=== PATIENT | female | born 1995 | race Caucasian/White ===

== ENCOUNTER → 2016-06-14 | Outpatient (REF) | payer OTHER | LOC: M LAB REF 16:54 | PROVIDERS: ATTEND Advanced Practice Midwife | DX: Z34.83 Encounter for supervision of other normal pregnancy, third trimester (principal) ==

== ENCOUNTER 2016-06-25 19:40 | Outpatient (CLI) | payer OTHER | END 2016-06-25 20:40 | disposition home or self-care (01) | LOC: M LDO 19:40 | PROVIDERS: ATTEND Advanced Practice Midwife ==

== ENCOUNTER 2016-07-07 04:28 | Inpatient (IN) | payer OTHER ==
[~2016-07-07] VITALS: Ht 154.9 cm; Wt 85.0 kg
[2016-07-07] VITALS (7 sets, daily range): BP systolic 109–133; BP diastolic 54–80
[2016-07-07] MEDS ORDERED: LR 1,000 ML IV SCH (05:02)
[2016-07-07] MEDS ORDERED: LACTATED RINGER'S 1000 ML IV STA (05:02)
[2016-07-07 05:49] LABS: BASO # 0.1 K/mm3 (0.0-0.2); BASO % 0.5 % (0.0-1.0); EOS # 0.1 K/mm3 (0.0-0.50); EOS % 0.7 % (0.0-3.0); LARGE UNSTAINED CELL # 0.2 K/mm3 (0.0-0.4); LARGE UNSTAINED CELL % 1.4 % (0.0-4.0); LYMPH # 1.9 K/mm3 (1.5-6.5); LYMPH % 12.5 % (24.0-44.0); MEAN CORPUSCULAR HEMOGLOBIN 27.9 pg (27.0-33.0); MEAN CORPUSCULAR HGB CONC 31.9 g/dl (32.0-36.5); MEAN CORPUSCULAR VOLUME 87.3 fl (80.0-96.0); MONO # 0.7 K/mm3 (0.0-0.8); MONO % 4.5 % (0.0-5.0); NEUTROPHILS # 12.3 K/mm3 (1.8-7.7); NEUTROPHILS % 80.4 % (36.0-66.0); PLATELET COUNT, AUTOMATED 315 k/mm3 (150-450); WHITE BLOOD COUNT 15.2 K/mm3 (4.0-10.0)
[2016-07-07] MEDS ORDERED: FENTANYL 2MCG/ML ROPIVACAINE 0.2% NACL 250 ML CADD As Ordered ONE (06:31)
[2016-07-07] MEDS ORDERED: EPIDURAL/PCA KEYS XX PRN (07:00)
[2016-07-07] MEDS ORDERED: diphenhydrAMINE INJ 50MG/ML VIAL (J1200) IV PRN (07:00)
[2016-07-07] MEDS ORDERED: FENTANYL/ROPIVACAINE/NACL CADD 250 ML EPIDURAL SCH (07:00)
[2016-07-07] MEDS ORDERED: REFRIGERATOR IV KEYS XX PRN (07:00)
[2016-07-07] MEDS ORDERED: ONDANSETRON 4MG/2ML VIAL (J2405) IV PRN (07:00)
[2016-07-07] MEDS ORDERED: NALOXONE INJ 0.4 MG/1 ML VIAL (J2310) IV PRN (07:00)
[2016-07-07] MEDS ORDERED: EPIDURAL COMMENT XX SCH (07:00)
[2016-07-07 07:17] LABS: CORD GAS ABE A -1.8; CORD GAS HCO3 A 25.5 MEQ/L; CORD GAS O2 SAT A 21.4 %; CORD GAS PCO2 A 54.1 mmHg; CORD GAS PH A 7.291 UNITS; CORD GAS PO2 A 13.1 mmHg; CORD GAS SBC A 21.2 MEQ/L; CORD GAS TCO2 A 27.1 MEQ/L
[2016-07-07] MEDS ORDERED: OXYTOCIN DRIP 30 UNITS in APPROPRIATE DILUENT 1 EA IV SCH (07:17)
[2016-07-07 07:20] LABS: CORD GAS ABE V -1.5; CORD GAS O2 SAT V 57.6 %; CORD GAS PCO2 V 42.9 mmHg; CORD GAS PH V 7.365 UNITS; CORD GAS PO2 V 23.3 mmHg; CORD GAS SBC V 22.3 MEQ/L; CORD GAS TCO2 V 25.3 MEQ/L
[2016-07-07] MEDS ORDERED: DIBUCAINE 1% OINTMENT 30GM TOP PRN (07:30)
[2016-07-07] MEDS ORDERED: ANUSOL HC CREAM 30GM TOP PRN (07:30)
[2016-07-07] MEDS ORDERED: DOCUSATE SODIUM 100 MG CAP PO PRN (07:30)
[2016-07-07] MEDS ORDERED: MEASLES,MUMPS,RUBELLA VACCINE INJ (MMR-II) (90707) SC SCH (07:30)
[2016-07-07] MEDS ORDERED: RHOGAM 300 MCG (1500 IU) INJ (J2790) IM SCH (07:30)
[2016-07-07] MEDS ORDERED: METHYLERGONOVINE MALEATE 0.2 MG TAB PO PRN (07:30)
[2016-07-07] MEDS: IBUPROFEN 800 MG TAB PO PRN ×2 (07:41→16:40)
[2016-07-07] MEDS: PRENATAL VITAMIN TAB PO SCH (07:43)
[2016-07-07] MEDS: ACETAMINOPHEN 500 MG TAB PO PRN ×2 (11:40→23:10)
--- NOTE | 2016-07-07 12:07 | HPE ---
DATE OF ADMISSION: 07/07/2016 Jessenia is a 21-year-old female 4, para 2-0-1-2 with an estimated date of confinement (EDC) of 07/08/2016, estimated gestational age (EGA) 39-6/7 weeks gestation who presented to labor and delivery with complaints of contractions every 3-4 minutes. Upon evaluation in labor and delivery she was found to be in labor. At this point, a decision was made for admission. She initiated care in her first trimester of her . Her care has essentially been unremarkable. LABS: Blood type is A positive. Rubella immune. Hepatitis negative. HIV negative. GC and chlamydia negative. 1-hour sugar testing was within normal limits. Her Group B Streptococcus (GBS) was negative. PAST MEDICAL HISTORY: Significant for celiac disease. PAST SURGICAL HISTORY: Patient had tonsillectomy and knee surgery. SOCIAL HISTORY: No alcohol or a drug use. The patient is a cigarette smoker. Smokes approximately five cigarettes per day. REVIEW OF SYSTEMS: Unremarkable. MEDICATIONS - vitamins ALLERGIES: Gluten. PHYSICAL EXAMINATION: Normal-appearing female in no acute distress. HEENT: Grossly within normal limits. ABDOMEN: Soft, nontender, nondistended. EXTREMITIES: No clubbing, cyanosis or edema. PLAN: Admit to labor and delivery. Routine labs sent. Pain management discussed. Patient opts for an epidural. Will continue to monitor. Anticipate delivery.
--- NOTE | 2016-07-07 13:26 | DN ---
DATE: 07/07/2016 Jessenia is a 21-year-old female, 4, para 2-0-1-2, was admitted at 39-6/7 weeks gestation in labor. She progressed quickly to fully dilated, delivered a live female in right occiput anterior position with a tight nuchal cord which was reduced on the perineum. scores 8 and 9, weight 7 pounds 3 ounces. Placenta delivered spontaneously intact. Three-vessel cord. Perineum, vagina, cervix inspected. No laceration noted. Estimated blood loss 300 mL. Both mother and baby in stable condition.
[2016-07-08] MEDS: IBUPROFEN 800 MG TAB PO PRN (02:19)
[2016-07-08 06:05] VITALS: BP 109/56
[2016-07-08] MEDS: PRENATAL VITAMIN TAB PO SCH (09:17)
[2016-07-08] MEDS ORDERED: PRENTAB9 PO (11:08)
[2016-07-08] MEDS ORDERED: ACET50TA PO (11:08)
[2016-07-08] MEDS ORDERED: IBUP-1114 PO (11:08)
[2016-07-09] MEDS ORDERED: INFLUENZA QUADRIVALENT PF VACCINE 0.5ML SYRINGE/VIAL (90686) IM ONE (09:00)
== END 2016-07-08 12:50 | disposition home or self-care (01) | DRG 560 ==
LOC: M LDO 04:28 → M LDI 05:01 → M OBS 13:22
PROVIDERS: ADMIT Obstetrics & Gynecology; ATTEND Obstetrics & Gynecology
PROC: 10E0XZZ Delivery of Products of Conception, External Approach (ICD-10-PCS; principal; 2016-07-07)
DX: O69.89X0 Labor and delivery complicated by other cord complications, not applicable or unspecified (principal); Z37.0 Single live birth; Z3A.39 39 weeks gestation of pregnancy

== ENCOUNTER 2016-09-05 22:07 | Emergency (ER) | payer OTHER, SELFPAY ==
[~2016-09-05] VITALS: Ht 154.9 cm; Wt 81.6 kg
[~2016-09-05 22:07] MED LIST: ACET50TA PO; IBUP-1114 PO; PRENTAB9 PO
[2016-09-06 00:10] VITALS: BP 105/65
== END 2016-09-06 00:20 | disposition home or self-care (01) ==
LOC: M ED 22:52
DX: R51 Headache (principal); G43.709 Chronic migraine without aura, not intractable, without status migrainosus; Z86.69 Personal history of other diseases of the nervous system and sense organs

== ENCOUNTER 2016-09-21 21:38 | Emergency (ER) | payer MEDICARE, OTHER, SELFPAY ==
[~2016-09-21] VITALS: Ht 154.9 cm; Wt 81.6 kg
[2016-09-21 22:53] LABS: ANION GAP 7 MEQ/L (8-16); BLOOD UREA NITROGEN 13 MG/DL (7-18); CALCIUM LEVEL 8.8 MG/DL (8.5-10.1); CARBON DIOXIDE LEVEL 25 MEQ/L (21-32); CHLORIDE LEVEL 107 MEQ/L (98-107); CREATININE FOR GFR 0.96 MG/DL (0.55-1.02); GLOMERULAR FILTRATION RATE > 60.0 (>60); GLUCOSE, FASTING 94 MG/DL (70-105); POTASSIUM SERUM 3.9 MEQ/L (3.5-5.1); SODIUM LEVEL 139 MEQ/L (136-145)
--- NOTE | 2016-09-22 01:20 | REPUSA ---
CLINICAL HISTORY: Headache. TECHNIQUE: MRI of the brain was performed prior to and following administration of intravenous contra st material. T1 spine echo, T2 fast spin echo and FLAIR sequences were obtained in sagittal, axial an d coronal planes. FINDINGS: The sella and parasellar regions are unremarkable in appearance. The corpus callosum and cerebellar t onsils are of normal configuration and position. There are no intra or extra-axial collections. There is no mass effect or midline shift. There is no evidence of hematoma formation. There is no hydrocep halus. The brain stem shows no mass effects, infarcts or hemorrhage. There are no cerebellopontine tumors. T he acoustic nerves are symmetrical. No cerebellar intra-axial pathology delineated. The fourth ventri brian and aqueduct are normal. No abnormalities of the optic nerves are identified. There is no evidenc e of atrophic or degenerative changes. No dural or subdural masses or collections are detected. The visualized arterial structures demonstrate normal appearing flow voids. The VII and VIII nerve bu ndles are visualized and are unremarkable in appearance. There are no suspicious signal abnormalities within the infra or supratentorial space. Post gadolinium sequences demonstrate no evidence of abnormal enhancement. Chronic mucosal inflammatory changes in the posterior right ethmoid air cells. IMPRESSION: Normal MRI of the brain. Chronic mucosal inflammatory changes in the posterior right ethmoid air cells. Thank you for your kind referral of this patient.
[2016-09-22] MEDS ORDERED: MORPHINE 4 MG/ML 1ML SYRINGE IV ONE (04:15)
[2016-09-22] MEDS ORDERED: DIAM500C PO (04:17)
[2016-09-22] MEDS ORDERED: KETOROLAC 30 MG/ML VIAL (J1885) As Ordered ONE (04:17)
[2016-09-22] MEDS ORDERED: KETOROLAC 30 MG/ML VIAL (J1885) IV ONE (04:30)
[2016-09-22 04:48] LABS: GLUCOSE CSF 58 MG/DL (40-75)
[2016-09-22 04:52] LABS: APPEARANCE, CSF CLEAR (CLEAR); COLOR, CSF COLORLESS (COLORLESS); CSF TUBE# CELL CNT TUBE 1; RBC CSF AUTO 1 /mm3 (0-0); WBC CSF AUTO 1 /mm3 (0-10)
[2016-09-22 04:53] LABS: CSF DIFF IF INDICATED? NO (NO)
[2016-09-22 04:54] LABS: CSF DILUENT LOT # 6165
[2016-09-22 05:30] VITALS: BP 125/74
[2016-09-22] MEDS ORDERED: TRAM50TA2 PO (06:00)
--- NOTE | 2016-09-24 13:19 | REP ---
MRA BRAIN WITHOUT AND WITH CONTRAST: The examination is available for review at 12:45 p.m. this date. HISTORY: Intracranial hypertension. CONTRAST: ProHance 16 mL. Unenhanced and enhanced 2D [id number] MR venography were performed. There are no filling defects in the deep venous system or dural sinuses. The right transverse and sigmoid sinuses are dominant. The left transverse and sigmoid sinuses are hypoplastic. There is stenosis of the proximal and distal left transverse sinus. IMPRESSION: There is stenosis of the proximal and distal left transverse sinus. Signed by Kranthi Urias MD 09/24/2016 01:32 P
== END 2016-09-22 05:49 | disposition home or self-care (01) ==
LOC: M ED 22:18
DX: G93.2 Benign intracranial hypertension (principal); Z79.899 Other long term (current) drug therapy; Z91.018 Allergy to other foods
CPT/HCPCS: 70546; 70553; 80048; 82945; 83525; 84157; 84681; 87015; 87070; 87205; 89050; 96374; 99283; A9576; J1885

== ENCOUNTER 2016-09-24 11:00 | Emergency (ER) | payer OTHER ==
[~2016-09-24] VITALS: Ht 162.6 cm; Wt 81.6 kg
[2016-09-24] MEDS ORDERED: METOCLOPRAMIDE INJ 10MG/2ML VIAL (J2765) IV ONE (12:00)
[2016-09-24] MEDS ORDERED: MORPHINE 4 MG/ML 1ML SYRINGE IV ONE (12:00)
[2016-09-24] MEDS ORDERED: NS 1,000 ML IV ONE (12:00)
[2016-09-24 14:01] VITALS: BP 112/64
[2016-09-24] MEDS ORDERED: TRAM50TA2 PO (14:34)
[2016-09-24] MEDS ORDERED: DIAM500C PO (14:34)
== END 2016-09-24 15:06 | disposition home or self-care (01) ==
LOC: EDBD 11:00 → M ED 11:43
DX: G97.1 Other reaction to spinal and lumbar puncture (principal); Z91.018 Allergy to other foods
CPT/HCPCS: 96374; 96375; 99282; J2765

== ENCOUNTER → 2016-09-24 | Outpatient (CLI) | payer OTHER ==
[~2016-09-24] MED LIST changes: +DIAM500C PO; +TRAM50TA2 PO
[2016-09-24 15:35] VITALS: BP 127/63
== END ==
LOC: M OPP 14:11 → M SDC 14:11
PROVIDERS: ATTEND Anesthesiology
DX: R52 Pain, unspecified (principal)

== ENCOUNTER 2018-05-31 14:58 | Emergency (ER) | payer OTHER ==
[~2018-05-31] VITALS: Ht 154.9 cm; Wt 59.1 kg
[~2018-05-31 14:58] MED LIST changes: -ACET50TA PO; +MAPA500T2 PO
[2018-05-31 15:39] LABS: BASO # 0.1 10^3/uL (0.0-0.2); BASO % 0.5 % (0.0-1.0); EOS # 0.3 10^3/uL (0.0-0.50); EOS % 2.6 % (0.0-3.0); HEMOGLOBIN 11.5 g/dl (12.0-15.5); LYMPH % 21.1 % (24.0-44.0); MEAN CORPUSCULAR HEMOGLOBIN 30.2 pg (27.0-33.0); MEAN CORPUSCULAR HGB CONC 34.8 g/dl (32.0-36.5); MEAN CORPUSCULAR VOLUME 86.6 fl (80.0-96.0); MONO # 0.6 10^3/uL (0.0-0.8); MONO % 6.5 % (0.0-5.0); NEUTROPHILS # 6.5 10^3/uL (1.8-7.7); NEUTROPHILS % 69.1 % (36.0-66.0); PLATELET COUNT, AUTOMATED 247 10^3/uL (150-450); RED BLOOD COUNT 3.81 10^6/uL (4.00-5.40); WHITE BLOOD COUNT 9.5 10^3/uL (4.0-10.0)
[2018-05-31 16:54] LABS: BLOOD UREA NITROGEN 9 MG/DL (7-18); CALCIUM LEVEL 8.3 MG/DL (8.5-10.1); CARBON DIOXIDE LEVEL 24 MEQ/L (21-32); CHLORIDE LEVEL 107 MEQ/L (98-107); CREATININE FOR GFR 0.61 MG/DL (0.55-1.30); GLOMERULAR FILTRATION RATE > 60.0 (>60); GLUCOSE, FASTING 98 MG/DL (70-100); HCG, SERUM QUANTITATIVE 67226 MIU/ML; POTASSIUM SERUM 3.7 MEQ/L (3.5-5.1); SODIUM LEVEL 138 MEQ/L (136-145)
--- NOTE | 2018-05-31 19:14 | REPVR ---
EXAM: US First Trimester, Transabdominal and US , Transvaginal EXAM DATE/TIME: 05/31/2018 6:36 PM CLINICAL HISTORY: 23 years old, female; Pain; complicated by abdominal or pelvic pain; Left lower quadrant; First trimester; Gestational age or lmp: 9w3d; ; Additional info: Pelvic pain; Hcg- 67k; ? Lmp TECHNIQUE: Real-time transabdominal obstetrical ultrasound of the maternal pelvis and a first trimester , less than 14 weeks 0 days, with image documentation. Transvaginal imaging was used for better evaluation of the fetus and adnexa. COMPARISON: No relevant prior studies available. FINDINGS: GESTATION: Gestation: Single gestational sac in the uterus. 2 small very gestational fluid collections demonstrated measuring 1.9 x 2.1 x 0.9 cm and 1.1 x 0.4 x 1.3 cm consistent either residual uterine cavity or the sequelae of narciso-gestational bleeding. Single fetus within the gestational sac with a crown-rump length measuring 2.7 cm. Heart rate: heart rate is 160 beats per minute. Placenta: Unremarkable. No subchorionic bleed. Amniotic fluid: Amniotic and chorionic fluid are normal for gestational age. BIOMETRY: Estimated gestational age: Gestational age based on crown-rump length is 9 weeks 3 days. Gestational age based on LMP is unknown. MATERNAL: Uterus: Unremarkable. Cervix: Unremarkable. Right adnexa: Unremarkable. Probable corpus luteum right ovary measures 1.6 x 1.2 x 2 cm. Left adnexa: Unremarkable. Intraperitoneal: No intraperitoneal free fluid. IMPRESSION: 2 narciso-gestational fluid collections as described above. Otherwise unremarkable examination in a 9 week 3 day gestational age based on ultrasound measurements. Electronically signed by: Otoniel Rodrigez On 05/31/2018 19:14:43 PM
[2018-05-31 19:30] VITALS: BP 110/60
[2018-05-31] MEDS ORDERED: MACR100C43 PO (19:38)
== END 2018-05-31 19:50 | disposition home or self-care (01) ==
LOC: M ED 14:58
DX: O23.41 Unspecified infection of urinary tract in pregnancy, first trimester (principal); O99.89 Other specified diseases and conditions complicating pregnancy, childbirth and the puerperium; G93.2 Benign intracranial hypertension; O99.331 Smoking (tobacco) complicating pregnancy, first trimester; Z3A.09 9 weeks gestation of pregnancy; Z91.018 Allergy to other foods

== ENCOUNTER → 2018-07-09 | Outpatient (CLI) | payer OTHER ==
[~2018-07-09] MED LIST changes: +MACR100C43 PO
[2018-07-09 18:59] LABS: BASO # 0.1 10^3/uL (0.0-0.2); BASO % 0.6 % (0.0-1.0); EOS # 0.3 10^3/uL (0.0-0.50); EOS % 2.8 % (0.0-3.0); HEMATOCRIT 32.4 % (36.0-47.0); HEMOGLOBIN 10.8 g/dl (12.0-15.5); LYMPH # 2.3 10^3/uL (1.5-6.5); LYMPH % 20.9 % (24.0-44.0); MEAN CORPUSCULAR HEMOGLOBIN 30.1 pg (27.0-33.0); MEAN CORPUSCULAR HGB CONC 33.3 g/dl (32.0-36.5); MEAN CORPUSCULAR VOLUME 90.3 fl (80.0-96.0); MONO # 0.7 10^3/uL (0.0-0.8); MONO % 6.4 % (0.0-5.0); NEUTROPHILS # 7.5 10^3/uL (1.8-7.7); NEUTROPHILS % 69.1 % (36.0-66.0); PLATELET COUNT, AUTOMATED 298 10^3/uL (150-450); RED BLOOD COUNT 3.59 10^6/uL (4.00-5.40); WHITE BLOOD COUNT 10.8 10^3/uL (4.0-10.0)
--- NOTE | 2018-07-09 20:15 | REP ---
Clinical: Dating . Comparison: 05/31/2018 . Findings: Examination demonstrates a single live intrauterine in cephalic presentation. motion is identified by technologist. Placenta is noted posterior and grade grade 1 without evidence for placenta previa or abruption. Amniotic fluid volume is normal. Cervix measures 6.0 cm in length and appears closed. No evidence for nuchal cord. Gestational age by first US 15 weeks 0 days with EMMANUEL 12/31/2018 . Gestational age by current measurements 15 weeks 3-day with EMMANUEL 12/28/2018 . FHR equals 147 beats per minute. Estimated weight 121 grams ( 57th percentile). Anatomical assessment demonstrates normal structures including cranium, choroid plexus, cavum, cerebellum/posterior fossa, facial features, lungs, diaphragm, stomach, cord insertion, kidneys/bladder, and extremities. Impression: 1. Single live intrauterine currently measuring at 15 weeks 3 days gestational age and demonstrating appropriate interval growth from first US. 2. Anatomical evaluation is limited due to early gestational age and warrants reevaluation. Electronically Signed by Aureliano Montero MD 07/09/2018 08:06 P
[2018-07-09 20:37] LABS: CHLAMYDIA DNA AMPLIFICATION NEGATIVE (NEGATIVE); GC DNA AMPLIFICATION NEGATIVE (NEGATIVE)
[2018-07-11 15:47] LABS: HIV 1&2 SCREEN CENTAUR NEGATIVE (NEGATIVE); RUBELLA IgG QUALITATIVE IMMUNE (IMMUNE)
== END ==
LOC: M SMT 13:33
PROVIDERS: ATTEND Advanced Practice Midwife
DX: Z34.82 Encounter for supervision of other normal pregnancy, second trimester (principal); Z3A.15 15 weeks gestation of pregnancy

== ENCOUNTER 2018-07-15 14:47 | Observation (INO) | payer OTHER ==
[~2018-07-15] VITALS: Ht 154.9 cm; Wt 60.0 kg
[2018-07-15] MEDS ORDERED: NS 1,000 ML IV ONE (16:00)
[2018-07-15 16:32] LABS: BASO # 0.1 10^3/uL (0.0-0.2); BASO % 0.7 % (0.0-1.0); EOS # 0.3 10^3/uL (0.0-0.50); EOS % 3.1 % (0.0-3.0); HEMATOCRIT 31.4 % (36.0-47.0); LYMPH % 21.6 % (24.0-44.0); MEAN CORPUSCULAR HEMOGLOBIN 30.5 pg (27.0-33.0); MONO # 0.6 10^3/uL (0.0-0.8); MONO % 6.7 % (0.0-5.0); NEUTROPHILS # 6.3 10^3/uL (1.8-7.7); NEUTROPHILS % 67.6 % (36.0-66.0); PLATELET COUNT, AUTOMATED 271 10^3/uL (150-450); RED BLOOD COUNT 3.61 10^6/uL (4.00-5.40); WHITE BLOOD COUNT 9.4 10^3/uL (4.0-10.0)
--- NOTE | 2018-07-15 16:35 | REP ---
OB ULTRASOUND: Real-time sonographic evaluation of the gravid uterus is performed. There is a single living intrauterine gestation. The estimated gestational age is 16 weeks 1 day, EDC 12/29/2018. Cervix is closed and measures 4.2 cm in length. heart rate 147 beats per minute. position is breech. Placenta is posterior and grade 0 with no evidence of previa or abruption. Electronically Signed by Zoltan Rodriguez MD 07/16/2018 10:36 A
[2018-07-15 17:11] LABS: ALBUMIN 3.3 GM/DL (3.2-5.2); ALT/SGPT 18 U/L (12-78); BILIRUBIN,DIRECT < 0.1 MG/DL (0.0-0.2); BILIRUBIN,TOTAL 0.3 MG/DL (0.2-1.0); BLOOD UREA NITROGEN 11 MG/DL (7-18); CALCIUM LEVEL 8.3 MG/DL (8.5-10.1); CARBON DIOXIDE LEVEL 25 MEQ/L (21-32); CHLORIDE LEVEL 103 MEQ/L (98-107); CREATININE FOR GFR 0.47 MG/DL (0.55-1.30); GLOMERULAR FILTRATION RATE > 60.0 (>60); GLUCOSE, FASTING 78 MG/DL (70-100); POTASSIUM SERUM 4.2 MEQ/L (3.5-5.1); SODIUM LEVEL 136 MEQ/L (136-145); TOTAL PROTEIN 6.5 GM/DL (6.4-8.2)
--- NOTE | 2018-07-15 18:43 | REP ---
MR Brain without contrast HISTORY: Headache COMPARISON : 09/21/1969 There are no areas of abnormal signal intensity in the brain. There is no intraparenchymal hemorrhage, infarct, mass or midline shift. The ventricular system is normal in appearance. There is no extra cerebral collection. Mucosal thickening is present in the right ethmoid sinus. IMPRESSION: There is no intracranial lesion. Electronically Signed by Kranthi Urias MD 07/15/2018 06:34 P
--- NOTE | 2018-07-15 19:02 | REP ---
MRA BRAIN WITHOUT CONTRAST: HISTORY: Headache. Unenhanced phase contrast MR venography was performed with a velocity encoding of 15 cm per second. COMPARISON: 09/22/2016 The left transverse sinus is not well seen. This is secondary to previously seen stenosis of the proximal and distal left transverse sinus. There are no definite filling defects in the left transverse sinus. There are no filling defects in the remaining dural sinuses or deep venous system. IMPRESSION: 1. The left transverse sinus is not well seen. This is secondary to previously seen stenoses of the proximal and distal left transverse sinus. There are no definite filling defects. 2. There are no filling defects in the remaining dural sinuses or deep venous system. Electronically Signed by Kranthi Urias MD 07/15/2018 07:06 P
[2018-07-15] MEDS ORDERED: ONDANSETRON 4 MG TAB (S0181) PO PRN (21:00)
[2018-07-15] MEDS ORDERED: ACETAMINOPHEN TAB 650MG DOSE (2X325MG) PO PRN (21:00)
[2018-07-15 22:40] VITALS: BP 111/59
[2018-07-16] VITALS: BP 103/51
[2018-07-16 08:18] LABS: HEMATOCRIT 26.5 % (36.0-47.0); HEMOGLOBIN 9.2 g/dl (12.0-15.5); MEAN CORPUSCULAR HEMOGLOBIN 30.4 pg (27.0-33.0); MEAN CORPUSCULAR HGB CONC 34.7 g/dl (32.0-36.5); MEAN CORPUSCULAR VOLUME 87.5 fl (80.0-96.0); PLATELET COUNT, AUTOMATED 230 10^3/uL (150-450); RED BLOOD COUNT 3.03 10^6/uL (4.00-5.40); WHITE BLOOD COUNT 7.9 10^3/uL (4.0-10.0)
[2018-07-16 08:30] VITALS: BP 93/52
--- NOTE | 2018-07-16 08:34 | HPE ---
DATE OF ADMISSION: 07/15/2018 PRIMARY CARE PROVIDER: Shae Millan from [facility]. CHIEF COMPLAINT: Headache. HISTORY OF PRESENT ILLNESS: Jessenia is a very pleasant 23-year-old G5, P3-0-1-3 at 16 weeks 2 days estimated gestational age with a past medical history significant for pseudotumor cerebri. She presented to the emergency room (ER) today complaining of a headache that started about 4 days ago. She states that she has got pain behind her left eye and down the back of the left side of her neck. She was diagnosed with pseudotumor cerebri at age 12. She does not have a shunt. She states that she only gets headaches really when she is . During her last she developed a headache though similar in nature to the to the one that she has today at about 30 weeks gestational age. She rode out the rest of her without a lumbar puncture, then after delivery she received a lumbar puncture. She states that during this lumbar puncture (LP) they poked her about six or seven time, a lot of cerebrospinal fluid (CSF) came out, she ended up having to get a blood patch, and was subsequently told that she should not have an LP done ever again. The patient says that her only complaint is a headache with pain behind her left eye and down the back of her left neck. She denies any nausea or vomiting, double vision, blurry vision, or gross loss of vision except for a left-sided peripheral field defect. 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 She does have some photophobia. And right now she states that her headache is bad enough that activities of daily living are impaired, she will just sit on a couch with her left arm over her eye, and is unable to take care of her three kids at home at this time. She is feeling baby move, she denies any vaginal bleeding or discharge. REVIEW OF SYSTEMS: CONSTITUTIONAL: Denies fevers, chills, night sweats, unexplained weight loss, or changes in appetite. HEENT: Admits to headache as described above as well as left eye pain and left posterior neck pain. Admits to a little bit of a left peripheral field defect. Denies amaurosis fugax, epistaxis, tinnitus, sore throat, runny nose, or odynophagia. CARDIOVASCULAR: Denies chest pain, orthopnea, edema, paroxysmal nocturnal dyspnea (PND) or palpitations. RESPIRATORY: Denies shortness of breath, cough, sputum production, hemoptysis or wheezing. GI: Denies nausea, vomiting, constipation, diarrhea, obstipation, hematemesis, hematochezia, melena, tenesmus or cramping. GENITOURINARY: Denies dysuria, hematuria, hesitancy, polyuria vaginal discharge or vaginal bleeding. She is gravid. MUSCULOSKELETAL: Denies leg weakness, joint swelling, stiffness or pain in her joints or extremities. INTEGUMENTARY: Denies any rashes, pruritus, lesions, wounds or stria. NEURO: Denies any changes to sight, smell, hearing or taste, no history of seizures, denies paresthesias or numbness. Admits to headache as described above. PSYCHIATRIC: Denies depression, anxiety, paranoia or anhedonia. ENDOCRINE: Denies mood swings sweats, diarrhea, tremor, palpitations, constipation, dry skin or thinning hair. Denies polydipsia, polyuria or polyphagia. HEMATOLOGIC: Denies easy bruising or bleeding. LYMPHATIC: Denies any new lumps or bumps anywhere. PAST MEDICAL HISTORY: Pseudotumor cerebri diagnosed at age 12 with a history of previous lumbar puncture. Celiac disease. HOME MEDICATIONS: None. FAMILY HISTORY: Her brother has pseudotumor cerebri which she states is worse than hers, and he does need a shunt. She also has a family history significant for lung cancer in her father's side concerning for her father, grandfather and grandmother. Her paternal grandfather also has prostate cancer. PAST SURGERIES: Right knee bone spur removal and a tonsillectomy and adenoidectomy. SOCIAL HISTORY: She lives at home with her three kids. Her mom is currently taking care of her children. She does not have pets. She denies tobacco, drugs or alcohol use. No only recent travel was to [place]. She denies any new illnesses. PHYSICAL EXAMINATION: Vitals: Temperature 99.0, pulse 75 and regular, respiratory rate 12, blood pressure 119/57, pulse ox is 100% on room air. General: Pleasant, awake, alert, very cooperative female in no acute distress. HEENT: Atraumatic, normocephalic. Mucous membranes are moist. Extraocular eye movements are intact. Pupils equal, round, reactive to light equally. Neck: Supple, no lymphadenopathy, no masses. Heart: Regular rate and rhythm. No murmurs, gallops or rubs. Lungs: Clear to auscultation bilaterally. No wheezes, rhonchi or rales. Abdomen: Normoactive bowel sounds, soft, nontender. The fundus of the uterus is palpated just above the pubic bone. Back: No CVA tenderness bilaterally, no abnormalities noted. Extremities: No clubbing, cyanosis or edema noted bilaterally. The patient has good peripheral pulses in all four extremities and capillary refill is less than 2 seconds. Neuro: Patient is awake, alert and oriented times three. Muscle strength is 5/5 bilaterally. Speech is clear and fluent. Extraocular eye movements are intact. Cranial nerves II-XII are grossly intact. The patient does have a slight peripheral field visual defect on the left. There is no nystagmus noted. Reflexes were not performed. Skin: No rashes, lesions or erythema is noted. LABORATORY DATA: CBC: WBC 9.4, hemoglobin 11.0, hematocrit 31.4, platelets 271. Differential shows 68% neutrophils, 22% lymphocytes, 7% monocytes, 3% eosinophils. Chemistry: Sodium 136, potassium 4.2, chloride 103, carbon dioxide 25, BUN 11, creatinine 0.43, fasting glucose 78, calcium 8.3, magnesium 2.0, total bili 0.3, direct bili less than 0.1, AST 12, ALT 18, alkaline phosphatase 46, total protein 6.5, albumin 3.3. Urine: Cloudy with a pH of 6.0 and specific gravity of 1.008. Positive for 3+ leukocyte esterase, 12 WBCs, 2+ bacteria and small amounts of amorphous sediment. MICROBIOLOGY: Urine culture pending. IMAGING: Obstetrical ultrasound shows a 16-week 1-day single living intrauterine gestation. The cervix is closed and measures 4.2 cm in length. heart rate is 147 beats per minute, position his breech, placenta is posterior and grade 0 with no evidence of previa or abruption. Brain MRI without contrast shows no areas of abnormal signal intensity, no intraparenchymal hemorrhage, infarct, mass, or midline shift. The ventricular system is normal in appearance. There is no extra cerebral fluid collection. Mucosal thickening is present in the right ethmoid sinus. MRA brain without contrast, MR venography. Left transverse sinus not well seen secondary to previously seen stenosis of the proximal and distal left transverse sinus. No definite filling defects are noted. No defects in the dural sinuses or deep venous system. ASSESSMENT: This is a 23-year-old G5, P3-0-1-3 at 16-weeks 2-days estimated gestational age with a past medical history significant for pseudotumor cerebri diagnosed at age 12 who presented to the emergency department with a headache that had lasted 4 days. This is similar to her presentations of pseudotumor cerebri in the past. PLAN: 1. Headache. Most likely secondary to pseudotumor cerebri, exacerbated by gravid status. Due to her history of a complicated lumbar puncture a couple of years ago, we will have interventional radiology do a lumbar puncture on her tomorrow morning. Dr. Escalante has been consulted and recommends that after her lumbar puncture she start Diamox 250 mg twice a day. DISPOSITION: The patient will be admitted to observation to Dr. Whalen's service starting at 0700 hours on 07/16/2018. My faculty preceptor for this patient encounter was physically present during the encounter and was fully available. All aspects of the patient interview, examination, medical decision making process, and medical care plan development were reviewed and approved by the faculty preceptor. The faculty preceptor is aware and concurs with the plan as stated in the body of this note and will attest to such by his/her cosignature. YARON
[2018-07-16 08:37] LABS: BLOOD UREA NITROGEN 10 MG/DL (7-18); CALCIUM LEVEL 7.7 MG/DL (8.5-10.1); CARBON DIOXIDE LEVEL 23 MEQ/L (21-32); CHLORIDE LEVEL 107 MEQ/L (98-107); CREATININE FOR GFR 0.55 MG/DL (0.55-1.30); GLOMERULAR FILTRATION RATE > 60.0 (>60); GLUCOSE, FASTING 79 MG/DL (70-100); POTASSIUM SERUM 3.5 MEQ/L (3.5-5.1); SODIUM LEVEL 138 MEQ/L (136-145)
[2018-07-16] MEDS ORDERED: AcetaZOLAMIDE 250 MG TAB PO SCH (09:00)
[2018-07-16] MEDS ORDERED: ACET250T2 PO (11:13)
[2018-07-16] MEDS ORDERED: ACET500T15 PO (11:13)
[2018-07-16] MEDS ORDERED: AcetaZOLAMIDE 250 MG TAB PO ONE (11:15)
--- NOTE | 2018-07-16 21:23 | IPNPDOC ---
Text Note Date of Service The patient was seen on 07/16/18. NOTE SUBJECTIVE: Does not have any new complaints. continues to have headache but it is bearable. No worsening of vision. LP could not be done at out hospital as the IR does not do it on pateints PHYSICAL EXAMINATION: Vitals: As below General: Pleasant, awake, alert, very cooperative female in no acute distress. HEENT: Atraumatic, normocephalic. Mucous membranes are moist. Extraocular eye movements are intact. Pupils equal, round, reactive to light equally. Neck: Supple, no lymphadenopathy, no masses. Heart: Regular rate and rhythm. No murmurs, gallops or rubs. Lungs: Clear to auscultation bilaterally. No wheezes, rhonchi or rales. Abdomen: Normoactive bowel sounds, soft, nontender. Back: No CVA tenderness bilaterally, no abnormalities noted. Extremities: No clubbing, cyanosis or edema noted bilaterally. The patient has good peripheral pulses in all four extremities and capillary refill is less than 2 seconds. Neuro: Patient is awake, alert and oriented times three. Muscle strength is 5/5 bilaterally. Speech is clear and fluent. Extraocular eye movements are intact. Cranial nerves II-XII are grossly intact. The patient does have a slight peripheral field visual defect on the left. There is no nystagmus noted. Skin: No rashes, lesions or erythema is noted. LAbs and radiology : Noted. ASSESSMENT AND PLAN: Jessenia is a very pleasant 23-year-old G5, P3-0-1-3 at 16 weeks 2 days estimated gestational age with a past medical history significant for pseudotumor cerebri from the age of 12 years, celiac disease presented to the emergency room (ER) today complaining of a headache that started about 4 days ago. She was diagnosed with pseudotumor cerebri at age 12. She does not have a shunt. She states that she only gets headaches really when she is . During her last she developed a headache though similar in nature to the to the one that she has today at about 30 weeks gestational age. She rode out the rest of her without a lumbar puncture, then after delivery she received a lumbar puncture. S he states that during this lumbar puncture (LP) they poked her about six or seven time, a lot of cerebrospinal fluid (CSF) came out, she ended up having to get a blood patch, and was subsequently told that she should not have an LP done ever again. MRI and MRV did not reveal any new obstruction or thrombosis. Admitted for possible Lumber puncture uder IR guidance HEadache due to Pseudotunor Cerebri worsened due to started on Diamox referred to Dr Taylor and neurology for follow up Lumber puncture was not done as MRi and MRV did not reveal any new features of increased pressure and our IR here is not equiped to handle any complications as had happened before If needed at a later date pateitn should be referred to Neurosurgery at [facility]. continue tylenol prn Disposition: patient will be discharged home. VS,Medhatbone, I+O VS, Fishbone, I+O Laboratory Tests 07/16/18 07:24 Red Blood Count 3.03 L, Mean Corpuscular Volume 87.5, Mean Corpuscular Hemoglobin 30.4, Mean Corpuscular Hemoglobin Concent 34.7, Red Cell Distribution Width 13.6, Calcium Level 7.7 L Vital Signs Date Time Temp Pulse Resp B/P (MAP) Pulse Ox O2 Delivery O2 Flow Rate FiO2 07/16/18 08:30 98.7 65 18 93/52 (66) 98 07/15/18 22:01 Room Air I&O- Last 24 Hours up to 6 AM 07/16/18 06:00 Intake Total 420 ml Output Total 300 ml Balance 120 ml JOHNATHON CHAMBERS MD Jul 16, 2018 21:23
== END 2018-07-16 13:30 | disposition home or self-care (01) ==
LOC: M ED 14:47 → M ED INP 20:51 → M PED 22:42
PROVIDERS: ADMIT Internal Medicine; ATTEND Internal Medicine Nephrology
DX: O99.352 Diseases of the nervous system complicating pregnancy, second trimester (principal); G93.2 Benign intracranial hypertension; R51 Headache

== ENCOUNTER → 2018-08-06 | Outpatient (CLI) | payer OTHER ==
[~2018-08-06] MED LIST changes: +ACET250T2 PO; +ACET500T15 PO
--- NOTE | 2018-08-07 03:16 | REP ---
Clinical: Anatomical evaluation. Comparison: 07/15/2018 . Findings: Examination demonstrates a single live intrauterine in cephalic presentation. motion is identified by technologist. Placenta is noted posterior and grade grade 1 without evidence for placenta previa or abruption. Amniotic fluid volume is normal. Cervix measures 5.3 cm in length and appears closed. No evidence for nuchal cord. Gestational age by LMP 19 weeks 2 days with EMMANUEL 12/29/2018 . Gestational age by current measurements 19 weeks 2 days with EMMANUEL 12/29/2018 . FHR equals 147 beats per minute. BPD 4.5 cm 19 weeks 5-day HC 16.3 cm 19 weeks 1 day AC 14.1 cm 19 weeks 3 days FL 3.1 cm 19 weeks 3 days HL 2.9 cm 19 weeks 3 days HC/AC ratio 1.16 Estimated weight 293 grams ( 51st percentile). Anatomical assessment demonstrates normal structures including cranium, choroid plexus, cavum, cerebellum/posterior fossa, facial features, lungs, four-chamber heart/ventricular outflow tracts, diaphragm, stomach, cord insertion/three-vessel cord, kidneys/bladder, spine, and extremities. Impression: 1. Single live intrauterine in cephalic presentation demonstrating appropriate interval growth. 2. Anatomical assessment is complete and normal. No gross abnormalities are identified. Electronically Signed by Aureliano Montero MD 08/07/2018 03:08 A
== END ==
LOC: M SMT 10:09
PROVIDERS: ATTEND Advanced Practice Midwife
DX: Z34.82 Encounter for supervision of other normal pregnancy, second trimester (principal)

== ENCOUNTER → 2018-08-19 | Outpatient (REF) | payer OTHER | LOC: M LAB REF 11:42 | PROVIDERS: ATTEND Advanced Practice Midwife | DX: Z34.82 Encounter for supervision of other normal pregnancy, second trimester (principal) ==

== ENCOUNTER 2018-12-13 19:07 | Outpatient (CLI) | payer OTHER | END 2018-12-13 19:25 | disposition home or self-care (01) | LOC: M LDO 19:07 | PROVIDERS: ATTEND Obstetrics & Gynecology | DX: O26.893 Other specified pregnancy related conditions, third trimester (principal); R06.9 Unspecified abnormalities of breathing; Z3A.38 38 weeks gestation of pregnancy ==

== ENCOUNTER 2018-12-13 19:36 | Emergency (ER) | payer OTHER ==
[~2018-12-13] VITALS: Ht 154.9 cm; Wt 77.3 kg
[2018-12-13] MEDS ORDERED: IPRATROPIUM 0.5MG/ALBUTEROL 2.5MG INH SOL UD 3ML (DUONEB)(J7620) NEB ONE (20:15)
[2018-12-13] MEDS ORDERED: NS 500 ML IV ONE (20:15)
[2018-12-13 20:26] LABS: BASO % 0.4 % (0.0-1.0); EOS # 0.2 10^3/uL (0.0-0.50); EOS % 1.9 % (0.0-3.0); HEMATOCRIT 30.9 % (36.0-47.0); HEMOGLOBIN 10.4 g/dl (12.0-15.5); LYMPH # 2.1 10^3/uL (1.5-6.5); LYMPH % 19.8 % (24.0-44.0); MEAN CORPUSCULAR HEMOGLOBIN 31.1 pg (27.0-33.0); MEAN CORPUSCULAR HGB CONC 33.7 g/dl (32.0-36.5); MEAN CORPUSCULAR VOLUME 92.5 fl (80.0-96.0); MONO % 9.8 % (0.0-5.0); NEUTROPHILS # 7.1 10^3/uL (1.8-7.7); NEUTROPHILS % 67.6 % (36.0-66.0); PLATELET COUNT, AUTOMATED 250 10^3/uL (150-450); RED BLOOD COUNT 3.34 10^6/uL (4.00-5.40); WHITE BLOOD COUNT 10.4 10^3/uL (4.0-10.0)
[2018-12-13 20:50] LABS: ALBUMIN 2.6 GM/DL (3.2-5.2); ALT/SGPT 15 U/L (12-78); BILIRUBIN,DIRECT < 0.1 MG/DL (0.0-0.2); BILIRUBIN,TOTAL 0.2 MG/DL (0.2-1.0); BLOOD UREA NITROGEN 8 MG/DL (7-18); CALCIUM LEVEL 8.4 MG/DL (8.5-10.1); CARBON DIOXIDE LEVEL 24 MEQ/L (21-32); CHLORIDE LEVEL 109 MEQ/L (98-107); CREATININE FOR GFR 0.68 MG/DL (0.55-1.30); GLOMERULAR FILTRATION RATE > 60.0 (>60); GLUCOSE, FASTING 92 MG/DL (70-100); NT-PRO BNP 55 PG/ML (<125); POTASSIUM SERUM 3.9 MEQ/L (3.5-5.1); SODIUM LEVEL 139 MEQ/L (136-145); TOTAL PROTEIN 6.6 GM/DL (6.4-8.2)
[2018-12-13 22:30] VITALS: BP 114/67
[2018-12-13] MEDS ORDERED: ALBUTEROL 90 MCG/ACT 8GM HFA INHALER INH ONE (22:30)
--- NOTE | 2018-12-15 16:54 | ECGEPIP ---
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
== END 2018-12-13 22:48 | disposition admitted as inpatient to this hospital (09) ==
LOC: M ED 19:36
DX: O99.89 Other specified diseases and conditions complicating pregnancy, childbirth and the puerperium (principal); R06.89 Other abnormalities of breathing; Z3A.39 39 weeks gestation of pregnancy; Z91.018 Allergy to other foods

== ENCOUNTER 2018-12-30 14:10 | Inpatient (IN) | payer OTHER ==
[~2018-12-30] VITALS: Ht 154.9 cm; Wt 82.2 kg
[2018-12-30 14:31] VITALS: BP 99/60
[2018-12-30] MEDS ORDERED: VENTAER INH (14:41)
[2018-12-30 16:57] VITALS: BP 109/59
[2018-12-30 17:22] VITALS: BP 112/73
[2018-12-30] MEDS ORDERED: LR 1,000 ML IV SCH ×2 (17:35→20:20)
[2018-12-30] MEDS ORDERED: LACTATED RINGER'S 1000 ML IV STA (17:35)
[2018-12-30 17:44] LABS: HEMOGLOBIN 10.2 g/dl (12.0-15.5); MEAN CORPUSCULAR HEMOGLOBIN 30.6 pg (27.0-33.0); MEAN CORPUSCULAR HGB CONC 32.9 g/dl (32.0-36.5); MEAN CORPUSCULAR VOLUME 93.1 fl (80.0-96.0); PLATELET COUNT, AUTOMATED 268 10^3/uL (150-450); RED BLOOD COUNT 3.33 10^6/uL (4.00-5.40); WHITE BLOOD COUNT 11.6 10^3/uL (4.0-10.0)
[2018-12-30] MEDS ORDERED: BICITRA 30ML SOLN UDC PO ONE (17:45)
[2018-12-30] MEDS ORDERED: MORPHINE PRES-FREE INJ 10 MG/10 ML VIAL (J2274) As Ordered ONE (18:48)
[2018-12-30] MEDS ORDERED: diphenhydrAMINE INJ 50MG/ML VIAL (J1200) IV PRN (18:56)
[2018-12-30] MEDS ORDERED: METOCLOPRAMIDE INJ 10MG/2ML VIAL (J2765) IV PRN (18:56)
[2018-12-30] MEDS ORDERED: NALOXONE INJ 0.4 MG/1 ML VIAL (J2310) IV PRN ×2 (18:56)
[2018-12-30] MEDS ORDERED: NALBUPHINE HCL 10 MG/ML AMP (J2300) IV PRN (18:56)
[2018-12-30] MEDS ORDERED: ONDANSETRON 4MG/2ML VIAL (J2405) IV PRN ×3 (18:56→20:45)
[2018-12-30] MEDS ORDERED: MIDAZOLAM INJ 2 MG/2 ML VIAL (J2250) As Ordered ONE ×2 (19:24→19:26)
[2018-12-30] MEDS ORDERED: fentaNYL 100 MCG/2 ML INJECTION (J3010) As Ordered ONE (19:29)
[2018-12-30] MEDS ORDERED: KETAMINE HCL 200 MG/20 ML VIAL As Ordered ONE (19:30)
[2018-12-30] MEDS ORDERED: OXYTOCIN DRIP 30 UNITS in APPROPRIATE DILUENT 1 EA IV SCH (20:20)
[2018-12-30] MEDS ORDERED: RHOGAM 300 MCG (1500 IU) INJ (J2790) IM SCH (20:30)
[2018-12-30] MEDS ORDERED: MEASLES,MUMPS,RUBELLA VACCINE INJ (MMR-II) (90707) SC SCH (20:30)
[2018-12-30] MEDS ORDERED: MOM 30ML SUSPENSION UDC PO PRN (20:30)
[2018-12-30] MEDS ORDERED: OXYTOCIN 30 UNITS IN 0.9% NaCl 500ML IV BAG (J2590) As Ordered ONE (20:33)
[2018-12-30] MEDS ORDERED: KETOROLAC 30 MG/ML VIAL (J1885) As Ordered ONE (20:33)
[2018-12-30] MEDS: KETOROLAC 30 MG/ML VIAL (J1885) IV SCH (20:38)
[2018-12-30] MEDS ORDERED: fentaNYL 100 MCG/2 ML INJECTION (J3010) IV PRN (20:45)
[2018-12-30] MEDS ORDERED: oxyCODONE 5MG TAB PO PRN (20:45)
[2018-12-30] MEDS: DOCUSATE SODIUM 100 MG CAP PO SCH (21:00)
[2018-12-30 21:55] VITALS: BP 104/52
[2018-12-30 22:25] VITALS: BP 103/51
[2018-12-30 23:25] VITALS: BP 112/64
[2018-12-31] VITALS (8 sets, daily range): BP systolic 99–116; BP diastolic 52–66
[2018-12-31] MEDS: PERCOCET 5MG/325MG TAB PO PRN ×3 (00:33→19:24)
[2018-12-31] MEDS: KETOROLAC 30 MG/ML VIAL (J1885) IV SCH ×3 (02:36→14:57)
--- NOTE | 2018-12-31 06:13 | HPE ---
DATE OF ADMISSION: 12/30/2018 REASON FOR ADMISSION: Labor. HISTORY OF PRESENT ILLNESS: Ms. To is a 23-year-old, 5, para 3 who presents at 40 weeks 1 day estimated gestational age by last menstrual period and confirmed by a first trimester ultrasound with complaints of contractions. She reports contractions throughout the day that have increased in intensity and frequency. She reports active movement. Denies any vaginal bleeding or leakage of fluid. Her course has been unremarkable. She initiated care in her first trimester, but has had inappropriate followup. Her last appointment was 10/13/2018 at 29 weeks. PAST MEDICAL HISTORY: None. PAST SURGICAL HISTORY: 1. Right knee surgery. 2. Appendectomy. 3. Tonsillectomy. OBSTETRICAL HISTORY: She is 5, para 3. She has had three term vaginal deliveries, all uncomplicated. She is proven to 8 pounds 12 ounces. MEDICATIONS: Includes BuSpar and vitamins. ALLERGIES: She has a gluten sensitivity. SOCIAL HISTORY: Smoked during the , but denies any alcohol use. PHYSICAL EXAMINATION: Vital signs stable. She is afebrile. She has a category one rate tracing with contractions on the tocometer. General Appearance: Well appearing, in no acute distress. Her abdomen is gravid, Akash's appears breech. Transabdominal ultrasound confirmed breech presentation. Cervical Exam: She was 2 cm dilated, 50% effaced -2 station. LABS: Blood type is A+, antibody screen is negative. Rubella is immune. RPR is nonreactive. Hepatitis surface antigen negative. HIV is negative. Hepatitis C is nonreactive. Chlamydia and gonorrhea screens negative. Did not complete a 28-week Glucola. She is GBS negative. ASSESSMENT: Ms. To is 23-year-old, 5, para 3, who appears to be in active labor with breech presentation. 2. Reassuring status. PLAN: The patient thoroughly counseled in regards to management of breech presentation. I discussed external cephalic version currently while she is in labor and primary section. Reviewed risks. After consultation and discussion with her family, the patient desires to proceed with a primary section. The operating room (OR) has been notified and anesthesia as well and will proceed. YARON
--- NOTE | 2018-12-31 06:39 | RO ---
DATE OF PROCEDURE: 12/30/2018 PREOPERATIVE DIAGNOSES: 1. Breech presentation. 2. Active labor. POSTOPERATIVE DIAGNOSES: 1. Breech presentation. 2. Active labor. PROCEDURE PERFORMED: Primary lower transverse section. SURGEON: Dr. Leda Agustin NETWORK PROJECT MANAGER: None. ANESTHESIA: Spinal. ESTIMATED BLOOD LOSS: 800 mL. INTRAVENOUS FLUIDS: 1500 mL of lactated Ringer's solution. URINE OUTPUT: 450 mL. OPERATIVE FINDINGS: Live born male , Apgars 8 and 9, weight was 7 pounds 5 ounces or 3310 grams. PREOPERATIVE ANTIBIOTICS: 2 grams of Ancef and 500 mg of azithromycin. DESCRIPTION OF OPERATION: After informed consent was obtained and written consent was reviewed, the patient was brought to the operating room where spinal anesthesia was placed. She was then placed in supine position with a left lateral tilt. Butts catheter was placed and set to gravity. She was then prepped and draped in normal sterile fashion. A time out in the operating room was then performed identifying the patient, the procedure be performed, as well as drug allergies. Anesthesia was tested and deemed to be adequate. A Pfannenstiel skin incision was then made and this was carried down to the underlying rectus fascia. The fascia was scored and this incision was extended bilaterally. The fascia was then dissected off the underlying rectus muscles both superiorly and inferiorly. The rectus muscles were midline. The peritoneum was then entered. Mobius retractor was then placed. Vesicouterine peritoneum was then tented and excised to create a bladder flap. A curvilinear incision was then made along the lower uterine segment. Amniotomy was then performed productive clear fluid. This incision was then extended and the breech was brought to the level of the incision and was delivered. The lower extremities delivered. The was then delivered down to level of the scapula where the upper extremities were delivered along with the head. Cord was clamped times two and was cut. was taken over to the warmer with a good cry. Placenta was then drained and delivered grossly intact. Uterine incision was then closed two layers using #0 Vicryl, first in a running locking fashion, followed by a second layer for imbrication in a running nonlocking fashion. Several cbwblb-[id number] stitches were placed to the left side of the uterine incision for hemostasis. Once hemostasis was achieved after several hurqny-fe-hmsvr sutures, the abdomen was then suctioned. Surgical sites were reinspected and noted be hemostatic. The Mobius retractor was then removed. The anterior peritoneum was reapproximated with #3-0 Vicryl. The rectus muscles were reapproximated #3-0 Vicryl and the fascia was then closed with #0 Vicryl in a running nonlocking fashion. Subcutaneous tissue was then irrigated and suctioned. Subcutaneous tissue was reapproximated with #3-0 Vicryl. Several subdermal stitches placed with #3-0 Vicryl and the skin was closed with #4-0 Monocryl in a subcuticular fashion. The incision was then cleaned and dried and was dressed. The patient was then taken to recovery in stable condition. Counts were correct.
[2018-12-31 07:20] LABS: HEMATOCRIT 21.4 % (36.0-47.0); MEAN CORPUSCULAR HEMOGLOBIN 29.9 pg (27.0-33.0); MEAN CORPUSCULAR HGB CONC 32.7 g/dl (32.0-36.5); MEAN CORPUSCULAR VOLUME 91.5 fl (80.0-96.0); PLATELET COUNT, AUTOMATED 211 10^3/uL (150-450); RED BLOOD COUNT 2.34 10^6/uL (4.00-5.40)
[2018-12-31] MEDS ORDERED: OXYC1TAB23 PO (07:51)
[2018-12-31] MEDS ORDERED: IBUP1TAB7 PO (07:54)
[2018-12-31] MEDS: DOCUSATE SODIUM 100 MG CAP PO SCH ×2 (08:55→21:58)
[2018-12-31] MEDS: PRENATAL VITAMINS CHEWABLE TABLET PO SCH (08:55)
[2018-12-31] MEDS: IBUPROFEN 800 MG TAB PO SCH (21:58)
[2019-01-01 02:00] VITALS: BP 99/48
[2019-01-01] MEDS: PERCOCET 5MG/325MG TAB PO PRN ×2 (03:16→13:46)
[2019-01-01 06:00] VITALS: BP 99/50
[2019-01-01] MEDS: PRENATAL VITAMINS CHEWABLE TABLET PO SCH (07:39)
[2019-01-01] MEDS: IBUPROFEN 800 MG TAB PO SCH (07:40)
[2019-01-01] MEDS: DOCUSATE SODIUM 100 MG CAP PO SCH (07:40)
--- NOTE | 2019-01-01 08:03 | DSES ---
DATE OF ADMISSION: 12/30/2018 DATE OF DISCHARGE: DISCHARGE DIAGNOSIS: Primary section, postoperative day #2, stable condition, surgeon Dr. Leda Agustin, assistant infant teacher none. HISTORY: Jessenia is a 5, para 4-0-1-4 now, who was admitted to labor and delivery in active labor and noted to have a breech presentation. Her care was sporadic and noncompliant with care. Her surgery was uncomplicated. She did deliver a male , 7 pounds 5 ounces, Apgars 8 and 9, in breech position, with estimated blood loss 800 mL. Her postoperative course has been uncomplicated. Jessenia has been out of bed for self care, narciso care and care. She does deny headache, dizziness and heart palpitations. She is breast-feeding well and her pain has been well managed with by mouth pain medications. She is tolerating a regular diet and by mouth fluids, voiding without difficulty and has positive flatus. OBJECTIVE: Temperature 98.8, pulse 86, respirations 17, blood pressure (BP) is 99/50. Preop CBC on 12/30/2018 with hemoglobin 10.2, hematocrit 31 and platelets 268. Postoperative CBC on 12/31/2018 with hemoglobin 7.0, hematocrit 21.4 and platelets 211. Her breasts are soft and nontender. Nipples are intact. No cracks and no bleeding. Abdomen: Fundus firm one fingerbreadth below umbilicus with the dressing dry and intact. There is no drainage or bleeding noted. Perineum is intact. Lochia rubra scant. Bilateral lower extremities negative for edema. PLAN: Discharge the patient home today. She is to follow up at [facility] for a 2-week incision check and an 8-week visit. Prescriptions have been E-prescribed by Dr. Leda Agustin for pain management. I did review discharge destruction that include breast care, incision care, narciso care, pelvic rest, activity and lifting restrictions, danger signs, and access to care with the patient. All her questions were answered and she requests discharge to home today.
[2019-01-01] MEDS ORDERED: ADACEL/BOOSTRIX VACCINE (DIPHTH/PERTUSS/ACELL/TETANUS)0.5ML SYR (90715) IM ONE (09:00)
== END 2019-01-01 13:54 | disposition home or self-care (01) | DRG 540 ==
LOC: M LDO 14:10 → M LDI 16:57 → M OBS 21:53
PROVIDERS: ADMIT Obstetrics & Gynecology; ATTEND Obstetrics & Gynecology
PROC: 10D00Z1 Extraction of Products of Conception, Low, Open Approach (ICD-10-PCS; principal; 2018-12-30 19:10)
DX: O32.1XX0 Maternal care for breech presentation, not applicable or unspecified (principal); Z3A.40 40 weeks gestation of pregnancy; Z37.0 Single live birth; O99.334 Smoking (tobacco) complicating childbirth; F17.210 Nicotine dependence, cigarettes, uncomplicated

== ENCOUNTER 2019-02-24 05:25 | Emergency (ER) | payer OTHER ==
[~2019-02-24] VITALS: Ht 154.9 cm; Wt 77.3 kg
[~2019-02-24 05:25] MED LIST changes: +IBUP1TAB7 PO; +OXYC1TAB23 PO; +VENTAER INH
[2019-02-24 06:42] LABS: BASO # 0.1 10^3/uL (0.0-0.2); BASO % 0.6 % (0.0-1.0); EOS # 0.5 10^3/uL (0.0-0.5); HEMATOCRIT 32.6 % (36.0-47.0); HEMOGLOBIN 10.2 g/dl (12.0-15.5); LYMPH # 2.2 10^3/uL (1.5-5.0); LYMPH % 27.7 % (24.0-44.0); MEAN CORPUSCULAR HEMOGLOBIN 25.6 pg (27.0-33.0); MEAN CORPUSCULAR HGB CONC 31.3 g/dl (32.0-36.5); MEAN CORPUSCULAR VOLUME 81.7 fl (80.0-96.0); MONO # 0.6 10^3/uL (0.0-0.8); MONO % 8.2 % (0.0-5.0); NEUTROPHILS # 4.5 10^3/uL (1.5-8.5); NEUTROPHILS % 57.1 % (36.0-66.0); PLATELET COUNT, AUTOMATED 363 10^3/uL (150-450); RED BLOOD COUNT 3.99 10^6/uL (4.00-5.40); WHITE BLOOD COUNT 7.8 10^3/uL (4.0-10.0)
[2019-02-24 06:54] LABS: PARTIAL THROMBOPLASTIN TIME 28.8 SECONDS (25.0-38.4); PROTHROMBIN TIME 12.9 SECONDS (11.8-14.0)
--- NOTE | 2019-02-24 06:54 | REPVR ---
PROCEDURE INFORMATION: Exam: CT Head Without Contrast Exam date and time: 02/24/2019 6:27 AM Clinical history: 23 years old, female; Pain; Headache; Tension TECHNIQUE: Imaging protocol: Computed tomography of the head without contrast. Radiation optimization: All CT scans at this facility use at least one of these dose optimization techniques: automated exposure control; mA and/or kV adjustment per patient size (includes targeted exams where dose is matched to clinical indication); or iterative reconstruction. COMPARISON: MRI-Brain without Contrast 07/15/2018 5:52 PM FINDINGS: Brain: The cortical/white matter interfaces are preserved throughout the brain. There is no evidence of intracranial hemorrhage. Ventricles: The ventricular system is normal in size and configuration. Bones/joints: No acute fractures of the skull are identified. Sinuses: There is minimal mucoperiosteal thickening in the visualized paranasal sinuses. No fluid levels. Mastoid air cells: The visualized mastoid air cells are clear. Soft tissues: The soft tissues appear unremarkable. IMPRESSION: Normal appearance of the brain. Electronically signed by: Betsy Sandhu On 02/24/2019 06:54:16 AM
[2019-02-24 07:12] LABS: ALBUMIN 3.6 GM/DL (3.2-5.2); ALT/SGPT 23 U/L (12-78); BILIRUBIN,DIRECT < 0.1 MG/DL (0.0-0.2); BILIRUBIN,TOTAL 0.2 MG/DL (0.2-1.0); BLOOD UREA NITROGEN 18 MG/DL (7-18); CALCIUM LEVEL 8.7 MG/DL (8.5-10.1); CARBON DIOXIDE LEVEL 25 MEQ/L (21-32); CHLORIDE LEVEL 107 MEQ/L (98-107); CREATININE FOR GFR 0.82 MG/DL (0.55-1.30); GLOMERULAR FILTRATION RATE > 60.0 (>60); GLUCOSE, FASTING 102 MG/DL (70-100); POTASSIUM SERUM 4.4 MEQ/L (3.5-5.1); SODIUM LEVEL 140 MEQ/L (136-145); TOTAL PROTEIN 7.5 GM/DL (6.4-8.2)
[2019-02-24] MEDS ORDERED: METOCLOPRAMIDE INJ 10MG/2ML VIAL (J2765) IV ONE (08:00)
[2019-02-24] MEDS ORDERED: KETOROLAC 30 MG/ML VIAL (J1885) IV ONE (08:00)
[2019-02-24 09:35] VITALS: BP 112/67
== END 2019-02-24 09:36 | disposition left against medical advice (07) ==
LOC: M ED 05:25
DX: R51 Headache (principal); G93.2 Benign intracranial hypertension; H53.9 Unspecified visual disturbance; Z91.018 Allergy to other foods
CPT/HCPCS: 36415; 70450; 80048; 80076; 84443; 85025; 85610; 85730; 93041; 94760; 96374; 96375; 99284; J1885; J2765

== ENCOUNTER → 2019-03-16 | Outpatient (CLI) | payer OTHER ==
--- NOTE | 2019-03-17 05:25 | REP ---
Clinical: Chronic back pain. Technique: AP, lateral, coned-down views of the lumbosacral spine. Findings: Alignment and lordosis maintained. Vertebral bodies and disc spaces are within normal limits. No acute fracture / compression injury or subluxation. No obvious spondylolysis or spondylolisthesis. Paravertebral soft tissues grossly unremarkable. Impression: Normal lumbar spine radiographs. Electronically Signed by Aureliano Montero MD 03/17/2019 05:17 A
--- NOTE | 2019-03-17 05:27 | REP ---
Clinical: Chronic neck pain. Technique: AP, lateral, open mouth views of the cervical spine. Findings: No acute fracture / compression injury or subluxation. Alignment and lordosis maintained. Vertebral bodies and disc spaces are normal. Surrounding soft tissues unremarkable. Impression: Normal cervical spine radiographs. Electronically Signed by Aureliano Montero MD 03/17/2019 05:19 A
--- NOTE | 2019-03-17 05:31 | REP ---
Clinical: Chronic lower back pain. Technique: Three views of the sacrum and coccyx. Findings: Osseous structures are intact and normal. Lateral view demonstrates acute angulation at the sacrococcygeal level which is nonspecific. Sacroiliac joints are symmetric and normal. Visualized soft tissues are unremarkable. Impression: Examination within normal limits. Electronically Signed by Aureliano Montero MD 03/17/2019 05:23 A
== END ==
LOC: M LRY 18:45
PROVIDERS: ATTEND Nurse Practitioner Family
DX: M54.9 Dorsalgia, unspecified (principal); G89.29 Other chronic pain

== ENCOUNTER → 2019-03-17 | Outpatient (REF) | payer OTHER ==
[2019-03-17 17:43] LABS: BASO # 0.1 10^3/uL (0.0-0.2); BASO % 1.2 % (0.0-1.0); EOS # 0.7 10^3/uL (0.0-0.5); EOS % 9.8 % (0.0-3.0); HEMATOCRIT 34.2 % (36.0-47.0); HEMOGLOBIN 10.5 g/dl (12.0-15.5); LYMPH # 2.2 10^3/uL (1.5-5.0); MEAN CORPUSCULAR HEMOGLOBIN 25.2 pg (27.0-33.0); MEAN CORPUSCULAR HGB CONC 30.7 g/dl (32.0-36.5); MEAN CORPUSCULAR VOLUME 82.2 fl (80.0-96.0); MONO # 0.6 10^3/uL (0.0-0.8); MONO % 9.2 % (0.0-5.0); NEUTROPHILS # 3.2 10^3/uL (1.5-8.5); NEUTROPHILS % 47.7 % (36.0-66.0); PLATELET COUNT, AUTOMATED 341 10^3/uL (150-450); RED BLOOD COUNT 4.16 10^6/uL (4.00-5.40); WHITE BLOOD COUNT 6.7 10^3/uL (4.0-10.0)
[2019-03-17 17:56] LABS: HEMOGLOBIN A1c 5.2 %
[2019-03-17 18:02] LABS: ALBUMIN 3.8 GM/DL (3.2-5.2); ALT/SGPT 29 U/L (12-78); BILIRUBIN,TOTAL 0.3 MG/DL (0.2-1.0); BLOOD UREA NITROGEN 13 MG/DL (7-18); CALCIUM LEVEL 8.9 MG/DL (8.5-10.1); CARBON DIOXIDE LEVEL 27 MEQ/L (21-32); CHLORIDE LEVEL 106 MEQ/L (98-107); CHOLESTEROL LEVEL 159 MG/DL (<200); CHOLESTEROL RISK RATIO 3.312 (<5); CREATININE FOR GFR 0.81 MG/DL (0.55-1.30); FERRITIN 5 NG/ML (8-252); GLOMERULAR FILTRATION RATE > 60.0 (>60); GLUCOSE, FASTING 98 MG/DL (70-100); HDL CHOLESTEROL 48 MG/DL (>40); IRON (FE) 35 UG/DL (50-170); LDL CHOLESTEROL 98 MG/DL (<100); NON-HDL-C 111 MG/DL; POTASSIUM SERUM 4.4 MEQ/L (3.5-5.1); SODIUM LEVEL 139 MEQ/L (136-145); TOTAL 25(OH) VITAMIN D 22.6 NG/ML (30.0-100.0); TOTAL PROTEIN 7.6 GM/DL (6.4-8.2); TRIGLYCERIDES LEVEL 63 MG/DL (<150); VITAMIN B12 LEVEL 692 PG/ML (247-911)
== END ==
LOC: M LAB REF 16:40
PROVIDERS: ATTEND Nurse Practitioner Family
DX: Z00.01 Encounter for general adult medical examination with abnormal findings (principal); R53.83 Other fatigue

== ENCOUNTER → 2019-04-25 | Outpatient (CLI) | payer OTHER ==
--- NOTE | 2019-04-27 09:37 | REP ---
MRI brain without contrast: History: Benign intracranial hypertension . Comparison study: Comparison brain MRI study is from July 15, 2018 and September 202016. Technique: Axial and sagittal imaging planes are utilized for T1 and T2-weighted scans. Sequences include spin-echo, fast spin echo, FLAIR, and diffusion weighted sequences. MRI findings: No bony calvarial lesion is seen. Craniocervical junction and upper cervical cord are normal in appearance. There is mild mucosal thickening in water to the ethmoid air cells on the right. This is improved. There is no other MR evidence of significant paranasal sinus disease. No intraorbital abnormality is seen. The lateral, third, and fourth ventricles are normal in size and position. Rodriguez-white differentiation pattern is intact above and below the tentorium. There is no evidence of intracranial hemorrhage. No mass, infarction, extra-axial fluid collection or midline shift is seen. No abnormal white matter lesion is seen. Impression: Minimal mucosal thickening in water to ethmoid air cells on the right. Otherwise normal noncontrast brain MRI study. Electronically Signed by Etienne Harkins MD 04/27/2019 09:28 A
== END ==
LOC: M RAD 09:19
PROVIDERS: ATTEND Nurse Practitioner Family
DX: G93.2 Benign intracranial hypertension (principal); F41.8 Other specified anxiety disorders; F51.01 Primary insomnia

== ENCOUNTER → 2019-06-20 | Outpatient (CLI) | payer OTHER ==
--- NOTE | 2019-06-21 07:33 | REP ---
MRI LUMBAR SPINE WITHOUT CONTRAST: HISTORY: Spondylolisthesis. Comparison lumbar spine radiographs, March 16, 2019. TECHNIQUE: Sagittal and axial T1- and T2-weighted scans are acquired in the usual fashion with and without fat saturation. Sequences include spin echo, turbo spin-echo, and STIR imaging sequences. MRI FINDINGS: Lumbar vertebral body heights are preserved. Alignment is normal. Cortical and medullary bone signal intensity are normal. There is no evidence of spondylolysis or spondylolisthesis. The tip of the conus medullaris is normal in appearance and position at L1. No extra-vertebral abnormality is observed. Axial and sagittal images at L1-2 and L2-3 show no significant finding. At L3-4, there is minimal disc space narrowing but no other abnormality. At L4-5, there is no evidence of disc protrusion, spinal stenosis, or foraminal narrowing. The L5-S1 level shows no evidence of disc protrusion. No neural foraminal narrowing is seen. No central canal stenosis is seen. IMPRESSION: Normal MRI study of the lumbar spine. Electronically Signed by Etienne Harkins MD 06/21/2019 08:53 A
== END ==
LOC: M RAD 14:00
PROVIDERS: ATTEND Physician Assistant
DX: M43.16 Spondylolisthesis, lumbar region (principal)

== ENCOUNTER → 2020-03-10 | Outpatient (REF) | payer OTHER ==
[2020-03-10 17:48] LABS: BASO # 0.1 10^3/uL (0.0-0.2); EOS # 0.5 10^3/uL (0.0-0.5); HEMATOCRIT 39.3 % (36.0-47.0); HEMOGLOBIN 13.1 g/dl (12.0-15.5); LYMPH # 2.5 10^3/uL (1.5-5.0); LYMPH % 27.1 % (24.0-44.0); MEAN CORPUSCULAR HEMOGLOBIN 29.9 pg (27.0-33.0); MEAN CORPUSCULAR HGB CONC 33.3 g/dl (32.0-36.5); MEAN CORPUSCULAR VOLUME 89.7 fl (80.0-96.0); MONO # 0.6 10^3/uL (0.0-0.8); MONO % 6.4 % (0.0-5.0); NEUTROPHILS # 5.6 10^3/uL (1.5-8.5); NEUTROPHILS % 60.2 % (36.0-66.0); PLATELET COUNT, AUTOMATED 312 10^3/uL (150-450); RED BLOOD COUNT 4.38 10^6/uL (4.00-5.40); WHITE BLOOD COUNT 9.4 10^3/uL (4.0-10.0)
[2020-03-10 18:30] LABS: ALBUMIN 4.1 GM/DL (3.2-5.2); ALT/SGPT 17 U/L (12-78); BILIRUBIN,TOTAL 0.9 MG/DL (0.2-1.0); BLOOD UREA NITROGEN 13 MG/DL (7-18); CARBON DIOXIDE LEVEL 25 MEQ/L (21-32); CHLORIDE LEVEL 108 MEQ/L (98-107); CHOLESTEROL LEVEL 136 MG/DL (<200); CHOLESTEROL RISK RATIO 3.022 (<5); CREATININE FOR GFR 0.75 MG/DL (0.55-1.30); FREE T4 1.11 NG/DL (0.76-1.46); GLOMERULAR FILTRATION RATE > 60.0 (>60); GLUCOSE, FASTING 88 MG/DL (70-100); HDL CHOLESTEROL 45 MG/DL (>40); LDL CHOLESTEROL 82 MG/DL (<100); NON-HDL-C 91 MG/DL; SODIUM LEVEL 138 MEQ/L (136-145); TOTAL PROTEIN 7.6 GM/DL (6.4-8.2); TRIGLYCERIDES LEVEL 44 MG/DL (<150)
[2020-03-10 18:34] LABS: TOTAL 25(OH) VITAMIN D 41.8 NG/ML (30.0-100.0)
== END ==
LOC: M SFHCPLAZ 14:26
PROVIDERS: ATTEND Physician Assistant
DX: Z86.2 Personal history of diseases of the blood and blood-forming organs and certain disorders involving the immune mechanism (principal); Z00.00 Encounter for general adult medical examination without abnormal findings; F32.1 Major depressive disorder, single episode, moderate; F41.9 Anxiety disorder, unspecified; Z13.220 Encounter for screening for lipoid disorders; R53.83 Other fatigue

== ENCOUNTER → 2020-08-09 | Outpatient (CLI) | payer OTHER ==
--- NOTE | 2020-08-13 02:04 | ECWPNPC ---
PATIENT NAME: JACLYN ASHFORD : 1995 GENDER: FEMALE VISIT DATE: 08/09/2020 DISCHARGE DATE: 08/09/20924 VISIT LOCKED DATE TIME: PHYSICIAN: JADE HARDWICK PHYSICIAN PAGER NO: ACTIVE RESOURCE: JADE HARDWICK REASON FOR APPOINTMENT 1. NECK/BACK HISTORY OF PRESENT ILLNESS DEPRESSION SCREENING: PHQ-9 LITTLE INTEREST OR PLEASURE IN DOING THINGSMORE THAN HALF THE DAYS FEELING DOWN, DEPRESSED, OR HOPELESSMORE THAN HALF THE DAYS TROUBLE FALLING OR STAYING ASLEEP, OR SLEEPING TOO MUCHNEARLY EVERY DAY FEELING TIRED OR HAVING LITTLE ENERGYNEARLY EVERY DAY POOR APPETITE OR OVEREATING NEARLY EVERY DAY FEELING BAD ABOUT YOURSELF-OR THAT YOU ARE A FAILURE OR HAVE LET YOURSELF OR YOUR FAMILY DOWN MORE THAN HALF THE DAYS TROUBLE CONCENTRATING ON THINGS, SUCH READING THE NEWSPAPER OR WATCHING TELEVISION NEARLY EVERY DAY MOVING OR SPEAKING SO SLOWLY THAT OTHER PEOPLE COULD HAVE NOTICED. OR THE OPPOSITE- BEING SO FIDGETY OR RESTLESS THAT YOU HAVE BEEN MOVING AROUND A LOT MORE THAN USUALNEARLY EVERY DAY THOUGHTS THAT YOU WOULD BE BETTER OFF , OR OF HURTING YOURSELF IN SOME WAY?NOT AT ALL TOTAL SCORE:21 INTERPRETATIONSEVERE DEPRESSION PHQ-2 (2015 EDITION) LITTLE INTEREST OR PLEASURE IN DOING THINGS?MORE THAN HALF THE DAYS FEELING DOWN, DEPRESSED, OR HOPELESS?MORE THAN HALF THE DAYS TOTAL SCORE4 GENERAL: 25-YEAR-OLD FEMALE REFERRED BY PRIMARY CARE TO EVALUATE CHRONIC LOW BACK PAIN. PATIENT REPORTS LONG HISTORY OF LOW BACK PAIN THAT DATES BACK TO CHILDHOOD. DENIES PRECIPITATING EVENT. PATIENT STATES SHE IS DEALING WITH HER MENTAL HEALTH RIGHT NOW. STATES THAT SHE DOES NOT WANT TO TAKE ANY PILLS. STATES THAT SHE KNOWS SHE IS SUPPOSED TO BE DOING STRETCHING EXERCISES AND PHYSICAL THERAPY BUT DOES NOT WANT TO PURSUE THAT AT THIS POINT. SEES MENTAL HEALTH COUNSELING ON A REGULAR BASIS. DENIES SUICIDAL OR HOMICIDAL IDEATIONS.- - -. FALL RISK SCREENING: SCREENING : NO FALLS REPORTED IN THE LAST YEAR , : NO FALLS REPORTED IN THE LAST YEAR. PAIN SCREENING: PATIENT HAS A COMPLAINT OF ACUTE OR CHRONIC PAIN :YES LOCATION OF PAIN:NECK, LOW BACK INTENSITY OF PAIN (SCALE OF 1 TO 10):6 WHAT DOES YOUR PAIN FEEL LIKE:OTHER PRESSURE DURATION:CONTINOUS, CONSTANT, ALL DAY PAIN IS INCREASED BY:ACTIVITIES PAIN IS DECREASED BY:OTHERS WARM BATH AND HEAT AND ICE NURSING NOTE: - - -. PAIN CENTER INTAKE QUESTIONS: DO YOU HAVE A HISTORY OF MRSA? :NO DO YOU TAKE A BLOOD THINNERS? :NO DO YOU HAVE ANY BLEEDING DISORDERS? :NO ANY NEW NUMBNESS OR WEAKNESS IN YOUR LEGS OR ARMS? :NO ANY PACEMAKER,DEFIBRILLATOR, OR DORSAL COLUMN STIMULATOR? :NO DO YOU HAVE ANY RASHES OR OPEN SORES? :NO ARE YOU ALLERGIC TO IV DYE? :NO ARE YOU DIABETIC? :NO ANY NEW PROBLEMS WITH YOUR MEDICATIONS? :NO HAVE YOU RECEIVED A VACCINE IN THE PAST 30 DAYS? :NO DO YOU PLAN TO RECEIVE A VACCINE IN THE NEXT 21 DAYS? :NO DO YOU NEED ANY PRESCRIPTION? :NO DO YOU TAKE ANY IMMUNOSUPPRESSIVE MEDICATIONS? :NO CURRENT MEDICATIONS NOT-TAKING GABAPENTIN 100 MG CAPSULE 1 CAPSULE ORALLY ONCE A DAY NOT-TAKING CYCLOBENZAPRINE HCL 10 MG TABLET 1 TABLET AT BEDTIME NEEDED ORALLY ONCE A DAY NOT-TAKING MELOXICAM 7.5 MG TABLET 1 TABLET ORALLY ONCE A DAY NOT-TAKING FERROUS SULFATE 325 (65 FE) MG TABLET 1 TABLET ORALLY TWICE A DAY NOT-TAKING HYDROXYZINE HCL 50 MG/ML SOLUTION 1 ML NEEDED INTRAMUSCULAR EVERY 6 HRS NOT-TAKING LORATADINE 10 MG TABLET 1 TABLET ORALLY ONCE A DAY NOT-TAKING NICOTINE POLACRILEX 2 MG GUM 1 PIECE FOR 30 MINUTE NEEDED MOUTH/THROAT 24 TIME(S) A DAY NOT-TAKING FLUCONAZOLE 100 MG TABLET 1 TABLET ORALLY NOT-TAKING IBUPROFEN 800 MG TABLET 1 TABLET WITH FOOD OR MILK NEEDED ORALLY THREE TIMES A DAY NOT-TAKING OXYCODONE-ACETAMINOPHEN 5-325 MG TABLET 1 TABLET NEEDED ORALLY EVERY 6 HRS NOT-TAKING NITROFURANTOIN MONOHYD MACRO 100 MG CAPSULE 1 CAPSULE AT BEDTIME WITH FOOD ORALLY ONCE A DAY NOT-TAKING ACETAMINOPHEN EXTRA STRENGTH 500 MG TABLET 1 TABLET NEEDED ORALLY EVERY 6 HRS NOT-TAKING ACETAZOLAMIDE 250 MG TABLET 1 TABLET ORALLY ONCE A DAY NOT-TAKING BUPROPION HCL ER (SR) 150 MG TABLET EXTENDED RELEASE 12 HOUR 1 TABLET IN THE MORNING ORALLY ONCE A DAY MEDICATION LIST REVIEWED AND RECONCILED WITH THE PATIENT PAST MEDICAL HISTORY CELIAC DISEASE PSEUDO TUMOR CEREBRI NECK PAIN BACK PAIN ALLERGIES CATS : SNEEZING GLUTEN : GI UPSET SURGICAL HISTORY T&A 2000 RIGHT KNEE-BONE SPUR 2008 12/30/2018 FAMILY HISTORY FATHER: ALIVE 53 YRS, COPD, EMPHYSEMA, PACEMAKER MOTHER: ALIVE 42 YRS, ARTHRITIS, PTSD SIBLINGS: ALIVE, SISTER HAS SCOLIOSIS, BROTHER- PSEUDOTUMORCEREBRI SON(S): SON-HEART MURMUR DAUGHTER(S): DAUGHTER-OBESE, SLEEP APNEA PATERNAL GRAND FATHER: , PANCREATIC CANCER PATERNAL GRAND MOTHER: , LUNG CANCER MATERNAL GRAND FATHER: , DIAGNOSED WITH UNSPECIFIED HEART DISEASE MATERNAL GRAND MOTHER: ALIVE 1 BROTHER(S) , 1 SISTER(S) - HEALTHY. 3 SON(S) , 1 DAUGHTER(S) - HEALTHY. NO KNOWN FAMILY HISTORY OF COLON, BREAST, OVARIAN OR UTERINE CANCER. SOCIAL HISTORY GENERAL: TOBACCO USE ARE YOU A:CURRENT SMOKER ARE YOU INTERESTED IN QUITTING?READY TO QUIT PREVIOUS QUIT ATTEMPTS?YES, WITHIN THE LAST 6 MONTHS. COUNSELED THE PATIENT ON TOBACCO USE, CESSATION [id number]/09/2021 HOW MANY CIGARETTES A DAY DO YOU SMOKE?6-10 HOW SOON AFTER YOU WAKE UP DO YOU SMOKE YOUR FIRST CIGARETTE?AFTER 60 MIN HOW OFTEN DO YOU SMOKE CIGARETTES?EVERY DAY PATIENT COUNSELED ON THE DANGERS OF TOBACCO USE AND URGED TO QUIT:06/17/2020 ADDITIONAL FINDINGS: TOBACCO USERMODERATE CIGARETTE SMOKER (10-19 CIGS/DAY) SMOKING CESSATION INFORMATION GIVEN06/17/2020 VAPORNO E-CIGARETTENO LATEX QUESTIONNAIRE LATEX ALLERGY : HAVE YOU EVER DEVELOPED ANY TYPE OF REACTION AFTER HANDLING LATEX PRODUCTS SUCH RUBBER GLOVES, CONDOMS, DIAPHRAGMS, BALLOONS, SOCKS, OR UNDERWEAR?NO LATEX ALLERGY : HAVE YOU EVER DEVELOPED ANY TYPE OF REACTION DURING OR AFTER DENTAL APPOINTMENT, VAGINAL/RECTAL EXAMINATION, SURGICAL PROCEDURE, OR ANY OTHER EXPOSURE?NO LATEX RISK : HAVE YOU EVER HAD ANY DIFFICULTY BREATHING OR HIVES AFTER EATING OR HANDLING ANY FRUITS, OR VEGETABLES; SUCH KIWI, BANANAS, STONE FRUITS, OR CHESTNUTSNO LATEX RISK : DO YOU HAVE A PREVIOUS PERSONAL HISTORY OF MORE THAN NINE SURGERIES, SPINA BIFIDA, OR REPEATED CATHERIZATIONS? NO LATEX RISK : ARE YOU FREQUENTLY EXPOSED TO LATEX PRODUCTS IN YOUR OCCUPATION?NO DATE ASKED : 08/09/2020 ALCOHOL USE: NO. BMI CARE GOAL FOLLOW-UP ABOVE NORMAL BMI FOLLOW-UPDIETARY MANAGEMENT EDUCATION, GUIDANCE, AND COUNSELING ALCOHOL SCREENING DID YOU HAVE A DRINK CONTAINING ALCOHOL IN THE PAST YEAR?NO POINTS0 INTERPRETATIONNEGATIVE RECREATIONAL DRUG USE DRUG USE?YES MARIJUANA- DAILY CAFFEINE CAFFEINE USE?NO SEXUAL HX HAD SEX IN THE LAST 12 MONTHS (VAGINAL, ORAL, OR ANAL)?YES WITHMEN ONLY USE PROTECTION?NO LMP:02/17/2020 HAVE YOU EVER HAD AN STD?NO HIV / HEP-C SCREENING HIV TEST OFFERED TO PATIENT:YES DATE OFFERED:03/10/2020 TEST ACCEPTED:NO HEP-C TEST OFFERED TO PATIENT:YES -N/A DATE OFFERED:03/10/2020 REASON:PATIENT DECLINED TEST ACCEPTED:NO REASON:PATIENT DECLINED BROCHURE PROVIDED TO PATIENTNO ORTHODOXY ORTHODOXY NO ADVENTIST BELIEFS THAT WOULD IMPACT HEALTH CARE. 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 DIET: GLUTEN FREE. EXERCISE: NO REGULAR EXERCISE. MARITAL STATUS: . OTHERS AT HOME: CHILDREN. HOUSING: RENTS HOUSE. HOSPITALIZATION/MAJOR DIAGNOSTIC PROCEDURE W/SURGERY PSEUDO TUMORCEREBRI-MULTPLE ADMISSIONS [id number] CHILDBIRTH 2012,2014,2016 REVIEW OF SYSTEMS CONSTITUTIONAL: ANY RECENT FEVER NO . CHILLS NO . WEIGHT CHANGE OF UNKNOWN REASONS NO . GASTROENTEROLOGY: NEW UNEXPLAINABLE CHANGES IN BOWEL CONTROL NO . CONSTIPATION NO . GENITOURINARY: ANY NEW CHANGE IN BLADDER CONTROL? NO . NEUROLOGY: NEW ONSET DIZZINESS OR NEUROLOGICAL CHANGES NOT MENTIONED NO . NEW NUMBNESS OR PAIN PATTERNS NOT MENTIONED AND PERTINENT TO TODAY'S VISIT NO . CARDIOLOGY: NEW CHEST PRESSURE NO . PATIENT DENIES NO . RESPIRATORY: UNEXPLAINABLE COUGH NO . NEW SHORTNESS OF BREATH NO . VITAL SIGNS WT 162.2 LBS, HT 5'1 1/2", BMI 30.15 INDEX, BP 105/56 MM HG, HR 75 /MIN, RR 18 /MIN, TEMP 98.4 F, OXYGEN SAT % 97%, SAFE IN ENV? (Y/N) YES, NA INITIALS AW [id number].JOSE SERRANO. EXAMINATION GENERAL EXAMINATION: GENERALNO ACUTE DISTRESS, WELL NOURISHED AND HYDRATED. PSYCHAPPROPRIATE MOOD AND AFFECT . NECK:NO LYMPHADENOPATHY, SUPPLE. LUNGS:CLEAR TO AUSCULTATION BILATERALLY, NO WHEEZES, RHONCHI, RALES. HEART:NO MURMURS, REGULAR RATE AND RHYTHM. MUSCULOSKELETAL:NORMAL RANGE OF MOTION., MUSCLE STRENGTH TESTING 5/5 BILATERAL LOWER EXTREMITIES. LUMBAR: PALPATION: NEGATIVE FOR PAIN OVER L/S SPINE. NEGATIVE FOR PAIN OVER L/S PARSPINALS. NEUROLOGIC EXAM:NORMAL SENSATION TO LIGHT TOUCH LOWER EXTREMITIES . DIAGNOSTIC TESTS REVIEWED MRI L/S SPINE-06/30/2020. ASSESSMENTS LOW BACK PAIN AT MULTIPLE SITES - M54.5 (PRIMARY) TREATMENT LOW BACK PAIN AT MULTIPLE SITES NOTES: PATIENT WAS GIVEN HOME EXERCISE AND STRETCHING FOR LOW BACK PAIN HANDOUT. I'VE RECOMMENDED THAT SHE CONTINUE WITH EFFORTS AT SELF-HELP. SHE IS NOT INTERESTED IN DOING MEDICATIONS OR INJECTIONS. SHE IS AWARE IF HER PAIN GETS WORSE SHE COULD CALL HERE AND WE COULD REASSESS HER NEEDS. PROCEDURE CODES FA211 ESTABILISHED PATIENT [facility] CHARGE DISPOSITION & COMMUNICATION FOLLOW UP PATIENT WILL CALL FOR APPOINTMENT IF NECESSARY (REASON: LOW BACK PAIN) ELECTRONICALLY SIGNED BY SHAYLA ARGUETA ON 08/12/2020 AT 02:58 PM EST DISCLAIMER : THIS IS A VISIT SUMMARY EXTRACTED FROM THE [employer] CHART. IT IS NOT A COPY OF THE [employer] PROGRESS NOTE. YARON
== END ==
LOC: M PAIN 08:30
PROVIDERS: ATTEND Nurse Practitioner Family
DX: M54.5 Low back pain (principal); K90.0 Celiac disease; G93.2 Benign intracranial hypertension; J30.81 Allergic rhinitis due to animal (cat) (dog) hair and dander; F17.210 Nicotine dependence, cigarettes, uncomplicated; Z79.891 Long term (current) use of opiate analgesic; Z79.899 Other long term (current) drug therapy

== ENCOUNTER 2020-11-05 17:02 | Emergency (ER) | payer OTHER ==
[~2020-11-05] VITALS: Ht 154.9 cm; Wt 70.9 kg
[2020-11-05 17:03] VITALS: BP 134/73
[2020-11-05] MEDS ORDERED: NS 1,000 ML IV ONE (18:00)
[2020-11-05 18:25] LABS: BASO # 0.1 10^3/uL (0.0-0.2); EOS # 0.7 10^3/uL (0.0-0.5); EOS % 7.6 % (0.0-3.0); HEMATOCRIT 37.9 % (36.0-47.0); HEMOGLOBIN 12.8 g/dl (12.0-15.5); LYMPH # 2.6 10^3/uL (1.5-5.0); MEAN CORPUSCULAR HEMOGLOBIN 30.3 pg (27.0-33.0); MEAN CORPUSCULAR HGB CONC 33.8 g/dl (32.0-36.5); MEAN CORPUSCULAR VOLUME 89.6 fl (80.0-96.0); MONO # 0.7 10^3/uL (0.0-0.8); MONO % 7.2 % (2.0-8.0); NEUTROPHILS # 5.3 10^3/uL (1.5-8.5); PLATELET COUNT, AUTOMATED 291 10^3/uL (150-450); RED BLOOD COUNT 4.23 10^6/uL (4.00-5.40); WHITE BLOOD COUNT 9.4 10^3/uL (4.0-10.0)
[2020-11-05 18:50] LABS: ERYTHROCYTE SEDIMENTATION RATE 8 mm/hr (0-20)
[2020-11-05 19:00] LABS: ALBUMIN 3.9 GM/DL (3.2-5.2); ALT/SGPT 16 U/L (12-78); BILIRUBIN,DIRECT 0.2 MG/DL (0.0-0.2); BILIRUBIN,TOTAL 0.4 MG/DL (0.2-1.0); BLOOD UREA NITROGEN 14 MG/DL (7-18); CALCIUM LEVEL 8.9 MG/DL (8.5-10.1); CARBON DIOXIDE LEVEL 28 MEQ/L (21-32); CHLORIDE LEVEL 107 MEQ/L (98-107); CREATININE FOR GFR 0.79 MG/DL (0.55-1.30); FREE T4 0.85 NG/DL (0.76-1.46); GLOMERULAR FILTRATION RATE > 60.0 (>60); GLUCOSE, FASTING 100 MG/DL (70-100); POTASSIUM SERUM 3.8 MEQ/L (3.5-5.1); SODIUM LEVEL 139 MEQ/L (136-145)
--- NOTE | 2020-11-05 21:06 | REPVR ---
PROCEDURE INFORMATION: Exam: MR Head Without Contrast Exam date and time: 11/05/2020 8:07 PM Age: 25 years old Clinical indication: Pain; Headache; Patient HX: PT states tension h/a for two days and worsening does not respond to medication, nki prior sent; Additional info: Headache HX psuedotumor TECHNIQUE: Imaging protocol: MR of the head without contrast. COMPARISON: MRI-Brain without Contrast 04/25/2019 9:40 AM FINDINGS: Brain: Images are mildly motion degraded. No acute infarct identified on the diffusion-weighted imaging. No parenchymal hemorrhage. No evidence of brain parenchymal edema or intracranial mass effect. No significant white matter disease. Cerebral ventricles: Stable. Small in size. Bones/joints: Unremarkable. 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 No evidence of acute or significant chronic obstructive sinusitis. Mastoid air cells: Normal as visualized. No mastoid effusion. Orbital cavity: Unremarkable. Soft tissues: Unremarkable. IMPRESSION: No acute intracranial abnormality. Electronically signed by: Claudia Guido On 11/05/2020 21:05:21 PM
[2020-11-05] MEDS ORDERED: ACETAMINOPHEN 325 MG TAB PO ONE (21:55)
[2020-11-05] MEDS ORDERED: KETOROLAC 30 MG/ML 1ML VIAL IV ONE (21:55)
== END 2020-11-05 22:15 | disposition home or self-care (01) ==
LOC: M ED 17:02
DX: R51.9 Headache, unspecified (principal); Z53.9 Procedure and treatment not carried out, unspecified reason; J45.909 Unspecified asthma, uncomplicated; K90.0 Celiac disease; F33.9 Major depressive disorder, recurrent, unspecified; F41.9 Anxiety disorder, unspecified; F17.200 Nicotine dependence, unspecified, uncomplicated

== ENCOUNTER 2020-12-31 07:59 | Emergency (ER) | payer OTHER ==
[~2020-12-31] VITALS: Ht 154.9 cm; Wt 70.5 kg
[2020-12-31 08:48] LABS: BASO # 0.1 10^3/uL (0.0-0.2); EOS # 0.6 10^3/uL (0.0-0.5); EOS % 7.4 % (0.0-3.0); HEMOGLOBIN 11.8 g/dl (12.0-15.5); LYMPH # 2.1 10^3/uL (1.5-5.0); LYMPH % 23.7 % (24.0-44.0); MEAN CORPUSCULAR HEMOGLOBIN 29.9 pg (27.0-33.0); MEAN CORPUSCULAR HGB CONC 33.7 g/dl (32.0-36.5); MEAN CORPUSCULAR VOLUME 88.6 fl (80.0-96.0); MONO # 0.8 10^3/uL (0.0-0.8); MONO % 8.8 % (2.0-8.0); NEUTROPHILS % 58.4 % (36.0-66.0); PLATELET COUNT, AUTOMATED 243 10^3/uL (150-450); RED BLOOD COUNT 3.95 10^6/uL (4.00-5.40); WHITE BLOOD COUNT 8.6 10^3/uL (4.0-10.0)
[2020-12-31 09:13] LABS: HCG, SERUM QUALITATIVE NEGATIVE (NEGATIVE)
[2020-12-31 09:16] LABS: ALBUMIN 3.6 GM/DL (3.2-5.2); ALT/SGPT 17 U/L (12-78); BILIRUBIN,DIRECT 0.2 MG/DL (0.0-0.2); BILIRUBIN,TOTAL 0.4 MG/DL (0.2-1.0); BLOOD UREA NITROGEN 11 MG/DL (7-18); CALCIUM LEVEL 8.6 MG/DL (8.5-10.1); CARBON DIOXIDE LEVEL 26 MEQ/L (21-32); CHLORIDE LEVEL 110 MEQ/L (98-107); CK-MB VALUE MASS < 1.0 NG/ML (<3.6); CPK CREATINE PHOSPHOKINASE 77 U/L (26-192); CREATININE FOR GFR 0.75 MG/DL (0.55-1.30); GLOMERULAR FILTRATION RATE > 60.0 (>60); GLUCOSE, FASTING 94 MG/DL (70-100); LIPASE 105 U/L (73-393); POTASSIUM SERUM 4.3 MEQ/L (3.5-5.1); SODIUM LEVEL 141 MEQ/L (136-145); TOTAL PROTEIN 6.6 GM/DL (6.4-8.2); TROPONIN I < 0.02 NG/ML (< 0.10)
[2020-12-31] MEDS ORDERED: KETOROLAC 30 MG/ML 1ML VIAL IV ONE (09:25)
--- NOTE | 2020-12-31 09:37 | ECGEPIP ---
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
--- NOTE | 2020-12-31 09:55 | REP ---
INDICATION: CHEST PAIN. COMPARISON: None. TECHNIQUE: AP upright portable chest imaging was performed. FINDINGS: The lungs are clear. The heart borders, mediastinum and pulmonary vascular pattern are normal. The upper abdominal bowel gas pattern is normal. There are no bony abnormalities of the chest. IMPRESSION: No evidence of acute cardiopulmonary pathology. <Electronically signed by Alex Rojas > 12/31/20 [id number]
[2020-12-31 10:31] VITALS: BP 104/56
== END 2020-12-31 11:41 | disposition home or self-care (01) ==
LOC: M ED 07:59
DX: R07.89 Other chest pain (principal); R11.0 Nausea; J45.909 Unspecified asthma, uncomplicated; Z91.018 Allergy to other foods; F17.210 Nicotine dependence, cigarettes, uncomplicated
CPT/HCPCS: 71045; 80048; 80076; 82550; 82553; 83690; 84703; 85025; 85379; 93005; 93041; 94760; 96374; 99285; J1885

== ENCOUNTER → 2021-02-03 | Outpatient (CLI) | payer OTHER ==
--- NOTE | 2021-02-07 11:20 | REP ---
INDICATION: BREAST PAIN, NODULE FOUND ON RT BREAST ON CT AT [facility]. COMPARISON: No prior mammograms or ultrasound exams for comparison. TECHNIQUE: Diagnostic digital CC and MLO views of the right breast were obtained using both 2D and 3D modalities. In addition, right breast ultrasonography was obtained from the 9 to 12 o'clock position. FINDINGS: There is an area of increased parenchymal density in the upper outer quadrant. This has partially obscured margins. It is somewhat irregular. Diagnostic ultrasonography was obtained over the region and at the 9 o'clock position a slightly irregular solid nodule which measures 6 x 4 x 6 mm was identified. This does not have a reniform shape. The Volpara volumetric breast density pattern is b. IMPRESSION: BIRADS/ACR category 0 mammogram. Diagnostic digital DBT spot compression views of the upper outer quadrant of the right breast are recommended to further assess this somewhat asymmetric mammographic finding. This area is larger than the ultrasonographic finding. Jessee Hoyt 11.4% This mammogram was interpreted with the aid of an FDA-approved computer-aided detection system. The patient states she had a clinical breast exam in over a year. The patient letter being requested is M0. RECOMMENDATION: As above <Electronically signed by Delmar Colvin > 02/07/21 [id number]
== END ==
LOC: M WHC 08:01
PROVIDERS: ATTEND Nurse Practitioner Family
DX: N64.4 Mastodynia (principal)
CPT/HCPCS: 76642; 77065; G0279

== ENCOUNTER → 2021-03-17 | Outpatient (CLI) | payer OTHER ==
--- NOTE | 2021-03-17 12:56 | REP ---
INDICATION: RIGHT BREAST ADD VIEWS FROM U/S; RIGHT BREAST ADD VIEWS. COMPARISON: 02/03/2021. TECHNIQUE: Spot-compression tomographic images are performed of the upper-outer quadrant of the right breast, in addition to ultrasound. FINDINGS: There is a band of fibroglandular tissue in the posterior aspect of the upper-outer quadrant of the right breast. This does not have a masslike appearance and there is no evidence of associated architectural distortion. Ultrasound of the upper-outer quadrant of the right breast demonstrates an oval hypoechoic nodule with an echogenic peripheral notch, measuring approximately 5 x 4 x 6 mm. This most likely represents an intramammary lymph node. No other cystic or solid nodule is seen. IMPRESSION: BIRADS/ACR category 3, probably benign. There appears to be a band of fibroglandular tissue posteriorly in the upper outer quadrant of the right breast, with no suspicious features. Ultrasound shows a probable intramammary lymph node at 9 o'clock. This mammogram was interpreted with the aid of an FDA-approved computer-aided detection system. The patient letter being requested is M3. RECOMMENDATION: Recommend follow-up right breast mammogram and ultrasound in 6 months. <Electronically signed by Zoltan Rodriguez > 03/17/21 [id number]
== END ==
LOC: M WHC 10:44
PROVIDERS: ATTEND Physician Assistant
DX: Z12.31 Encounter for screening mammogram for malignant neoplasm of breast (principal)
CPT/HCPCS: 76642; 77065; G0279

== ENCOUNTER 2021-07-11 15:13 | Emergency (ER) | payer OTHER ==
[~2021-07-11] VITALS: Ht 154.9 cm; Wt 86.2 kg
[2021-07-11] MEDS ORDERED: TOPA1TAB PO (18:25)
[2021-07-11 18:37] VITALS: BP 121/74
== END 2021-07-11 18:42 | disposition home or self-care (01) ==
LOC: M ED 15:13
DX: G93.2 Benign intracranial hypertension (principal); J45.909 Unspecified asthma, uncomplicated; F32.A Depression, unspecified; F41.9 Anxiety disorder, unspecified; F17.200 Nicotine dependence, unspecified, uncomplicated

== ENCOUNTER → 2021-08-28 | Outpatient (CLI) | payer OTHER ==
[~2021-08-28] MED LIST changes: +TOPA1TAB PO
[2021-08-28 15:31] LABS: BASO # 0.1 10^3/uL (0.0-0.2); BASO % 0.9 % (0.0-1.0); EOS # 0.5 10^3/uL (0.0-0.5); EOS % 4.6 % (0.0-3.0); HEMATOCRIT 38.1 % (36.0-47.0); HEMOGLOBIN 12.8 g/dl (12.0-15.5); LYMPH # 2.6 10^3/uL (1.5-5.0); LYMPH % 24.7 % (24.0-44.0); MEAN CORPUSCULAR HEMOGLOBIN 29.6 pg (27.0-33.0); MEAN CORPUSCULAR HGB CONC 33.6 g/dl (32.0-36.5); MEAN CORPUSCULAR VOLUME 88.2 fl (80.0-96.0); MONO # 0.8 10^3/uL (0.0-0.8); MONO % 7.4 % (2.0-8.0); NEUTROPHILS # 6.6 10^3/uL (1.5-8.5); PLATELET COUNT, AUTOMATED 287 10^3/uL (150-450); RED BLOOD COUNT 4.32 10^6/uL (4.00-5.40); WHITE BLOOD COUNT 10.6 10^3/uL (4.0-10.0)
[2021-08-28 15:36] LABS: HEMOGLOBIN A1c 5.1 %
[2021-08-28 16:03] LABS: FREE T4 0.87 NG/DL (0.76-1.46); PERCENT SATURATION 27.4 % (13.2-45.0); THYROID STIMULATING HORMONE 3.63 uIU/ML (0.358-3.740); TOTAL 25(OH) VITAMIN D 25.3 NG/ML (30.0-100.0)
== END ==
LOC: M PLALAB 14:05
PROVIDERS: ATTEND Physician Assistant
DX: F33.9 Major depressive disorder, recurrent, unspecified (principal); Z68.35 Body mass index [BMI] 35.0-35.9, adult; R53.83 Other fatigue; K90.41 Non-celiac gluten sensitivity

== ENCOUNTER 2022-02-27 11:16 | Emergency (ER) | payer OTHER ==
[~2022-02-27] VITALS: Ht 154.9 cm; Wt 97.7 kg
[2022-02-27] MEDS ORDERED: BUPR1TAB52 (11:23)
[2022-02-27] MEDS ORDERED: BACT800T5 PO (12:31)
[2022-02-27 13:00] VITALS: BP 136/63
== END 2022-02-27 13:01 | disposition home or self-care (01) ==
LOC: M ED 11:16
DX: L05.01 Pilonidal cyst with abscess (principal); G89.29 Other chronic pain; M54.9 Dorsalgia, unspecified; G93.2 Benign intracranial hypertension; K90.0 Celiac disease; J45.909 Unspecified asthma, uncomplicated; F32.A Depression, unspecified; F41.9 Anxiety disorder, unspecified; F17.210 Nicotine dependence, cigarettes, uncomplicated

== ENCOUNTER → 2022-03-21 | Outpatient (REF) | payer OTHER ==
[~2022-03-21] MED LIST changes: +BACT800T5 PO; +BUPR1TAB52
== END ==
LOC: M SFHCPLAZ 13:17
PROVIDERS: ATTEND Physician Assistant
DX: Z12.4 Encounter for screening for malignant neoplasm of cervix (principal)

== ENCOUNTER 2022-08-17 22:47 | Emergency (ER) | payer OTHER ==
[~2022-08-17] VITALS: Ht 154.9 cm; Wt 102.6 kg
[2022-08-17 22:48] VITALS: BP 126/66
[2022-08-17] MEDS ORDERED: SIME80TA PO (22:52)
== END 2022-08-18 03:00 | disposition left against medical advice (07) ==
LOC: M ED 22:47
DX: Z53.21 Procedure and treatment not carried out due to patient leaving prior to being seen by health care provider (principal)

== ENCOUNTER 2022-08-18 12:46 | Emergency (ER) | payer OTHER ==
[~2022-08-18] VITALS: Ht 154.9 cm; Wt 101.9 kg
[2022-08-18 12:46] VITALS: BP 133/78
[~2022-08-18 12:46] MED LIST changes: +SIME80TA PO
== END 2022-08-18 16:09 | disposition left against medical advice (07) ==
LOC: M ED 12:46
DX: Z53.21 Procedure and treatment not carried out due to patient leaving prior to being seen by health care provider (principal)

== ENCOUNTER 2023-01-03 16:46 | Emergency (ER) | payer OTHER ==
[~2023-01-03] VITALS: Ht 154.9 cm; Wt 94.7 kg
[2023-01-03 16:48] VITALS: BP 165/86; TEMP 98.1; O2SAT 99
[2023-01-03] MEDS ORDERED: ACET125T2 (16:53)
== END 2023-01-03 21:04 | disposition left against medical advice (07) ==
LOC: M ED 16:46
DX: Z53.21 Procedure and treatment not carried out due to patient leaving prior to being seen by health care provider (principal)

== ENCOUNTER → 2023-04-07 | Outpatient (REF) | payer OTHER ==
[~2023-04-07] MED LIST changes: +ACET125T2
== END ==
LOC: M LAB REF 17:54
PROVIDERS: ATTEND Physician Assistant Medical
DX: R05.9 Cough, unspecified (principal)

== ENCOUNTER → 2023-07-30 | Outpatient (REF) | payer OTHER ==
[2023-07-30 22:21] LABS: APPEARANCE, URINE CLOUDY (CLEAR); BACTERIA, URINE AUTO 2+ (NEGATIVE); BILIRUBIN, URINE AUTO NEGATIVE (NEGATIVE); BLOOD, URINE BLOOD NEGATIVE (NEGATIVE); COLOR, URINE YELLOW (YELLOW); GLUCOSE, URINE (UA) AUTO NEGATIVE (NEGATIVE); KETONE, URINE AUTO NEGATIVE (NEGATIVE); LEUKOCYTE ESTERASE, URINE AUTO 3+ (NEGATIVE); MUCUS, URINE SMALL (NEGATIVE); NITRITE, URINE AUTO NEGATIVE (NEGATIVE); PROTEIN, URINE AUTO NEGATIVE (NEGATIVE); RBC, URINE AUTO 8 /HPF (0-3); SPECIFIC GRAVITY URINE AUTO 1.025 (1.002-1.035); SQUAMOUS EPITHELIAL CELL UR AU 23 /HPF (0-6); UROBILINOGEN, URINE AUTO 0.2 mg/dL (0.0-2.0); WBC, URINE AUTO 13 /HPF (0-3)
== END ==
LOC: M LAB REF 21:57
PROVIDERS: ATTEND Physician Assistant
DX: N39.0 Urinary tract infection, site not specified (principal)

== ENCOUNTER 2023-10-07 14:54 | Emergency (ER) | payer OTHER ==
[~2023-10-07] VITALS: Ht 154.9 cm; Wt 94.1 kg
[~2023-10-07 14:54] MED LIST changes: +ACET250T18 PO; -ACET250T2 PO
[2023-10-07] MEDS ORDERED: NAPR-885 PO (19:37)
[2023-10-07] MEDS: NAPROXEN 250 MG TAB PO ONE (19:39)
[2023-10-07] MEDS: BOOSTRIX VACCINE (TETANUS/DIPHTH/ACEL. PERTUSSIS) 0.5ML SYR IM.IMMUN ONE (19:40)
[2023-10-07 19:47] VITALS: BP 129/83; TEMP 97.9; O2SAT 98
== END 2023-10-07 19:49 | disposition home or self-care (01) ==
LOC: M ED 14:54
DX: S83.92XA Sprain of unspecified site of left knee, initial encounter (principal); S80.212A Abrasion, left knee, initial encounter; Y92.9 Unspecified place or not applicable; Y93.9 Activity, unspecified; Y99.9 Unspecified external cause status; F17.210 Nicotine dependence, cigarettes, uncomplicated; Z91.018 Allergy to other foods; Z79.899 Other long term (current) drug therapy; Z23 Encounter for immunization

== ENCOUNTER 2024-01-21 15:17 | Emergency (ER) | payer OTHER ==
[~2024-01-21] VITALS: Ht 154.9 cm; Wt 97.3 kg
[~2024-01-21 15:17] MED LIST changes: +NAPR-885 PO
[2024-01-21] MEDS: ONDANSETRON 4MG ORAL DISINTEGRATING TAB PO ONE (16:49)
[2024-01-21] MEDS: ACETAMINOPHEN 500 MG TAB PO ONE (16:49)
[2024-01-21] MEDS ORDERED: AMOX500C PO (17:42)
[2024-01-21] MEDS ORDERED: IBUP-1022 PO (17:42)
[2024-01-21] MEDS ORDERED: ONDA-282 PO (17:42)
[2024-01-21 17:47] VITALS: BP 122/76; TEMP 96.4; O2SAT 99
== END 2024-01-21 17:50 | disposition home or self-care (01) ==
LOC: M ED 15:17
DX: S06.0X0A Concussion without loss of consciousness, initial encounter (principal); S00.83XA Contusion of other part of head, initial encounter; S13.4XXA Sprain of ligaments of cervical spine, initial encounter; R93.89 Abnormal findings on diagnostic imaging of other specified body structures; Y92.019 Unspecified place in single-family (private) house as the place of occurrence of the external cause; Y93.9 Activity, unspecified; Y99.9 Unspecified external cause status; Y04.8XXA Assault by other bodily force, initial encounter; J45.909 Unspecified asthma, uncomplicated; K90.0 Celiac disease; F17.210 Nicotine dependence, cigarettes, uncomplicated; F12.10 Cannabis abuse, uncomplicated; F10.10 Alcohol abuse, uncomplicated; Z91.018 Allergy to other foods; Z79.1 Long term (current) use of non-steroidal anti-inflammatories (NSAID); Z79.2 Long term (current) use of antibiotics; Z79.899 Other long term (current) drug therapy

== ENCOUNTER 2024-08-19 02:53 | Emergency (ER) | payer OTHER ==
[~2024-08-19] VITALS: Ht 154.9 cm; Wt 107.7 kg
[~2024-08-19 02:53] MED LIST changes: +AMOX500C PO; +IBUP-1022 PO; +ONDA-282 PO; +RALTEGRAVIR 400 MG TAB (ISENTRESS) PO SCH
[2024-08-19] MEDS ORDERED: EXPOSURE KIT-ADULT 7 DAY SUPPLY PO ONE (05:05)
[2024-08-19] MEDS ORDERED: DOXY-442 PO (05:07)
[2024-08-19] MEDS ORDERED: EMTR1TAB16 PO (05:07)
[2024-08-19] MEDS ORDERED: RALT40TA PO (05:07)
[2024-08-19] MEDS ORDERED: ONDA-282 PO (05:11)
[2024-08-19] MEDS: PERCOCET 5MG/325MG TAB PO ONE (05:25)
[2024-08-19 05:26] LABS: BASO # 0.1 10^3/uL (0.0-0.2); EOS # 0.3 10^3/uL (0.0-0.5); EOS % 3.3 % (0.0-3.0); HEMATOCRIT 36.4 % (36.0-47.0); HEMOGLOBIN 12.2 g/dl (12.0-15.5); LYMPH # 2.5 10^3/uL (1.5-5.0); LYMPH % 27.1 % (24.0-44.0); MEAN CORPUSCULAR HGB CONC 33.5 g/dl (32.0-36.5); MEAN CORPUSCULAR VOLUME 89.7 fl (80.0-96.0); MONO # 0.6 10^3/uL (0.0-0.8); MONO % 6.2 % (2.0-8.0); NEUTROPHILS # 5.6 10^3/uL (1.5-8.5); NEUTROPHILS % 62.1 % (36.0-66.0); PLATELET COUNT, AUTOMATED 323 10^3/uL (150-450); RED BLOOD COUNT 4.06 10^6/uL (4.00-5.40)
[2024-08-19 05:53] LABS: ALBUMIN 3.5 G/DL (3.2-5.2); ALKALINE PHOSPHATASE 80 U/L (35-104); ALT/SGPT 23 U/L (7.0-40); AST/SGOT 15 U/L (<34); BILIRUBIN,TOTAL 0.6 MG/DL (0.3-1.2); BLOOD UREA NITROGEN 12 MG/DL (9-23); CALCIUM LEVEL 8.7 MG/DL (8.5-10.1); CARBON DIOXIDE LEVEL 24 MMOL/L (20-31); CHLORIDE LEVEL 107 MMOL/L (98-107); CREATININE FOR GFR 0.71 MG/DL (0.55-1.30); GLOMERULAR FILTRATION RATE > 60.0 (>60); GLUCOSE, FASTING 103 MG/DL (60-100); POTASSIUM SERUM 4.2 MMOL/L (3.5-5.1); SODIUM LEVEL 139 MMOL/L (136-145); TOTAL PROTEIN 6.9 G/DL (5.7-8.2)
[2024-08-19 05:58] LABS: HCG, SERUM QUALITATIVE NEGATIVE (NEGATIVE)
[2024-08-19 06:00] LABS: HEPATITIS B SURFACE ANTIBODY NEGATIVE (POSITIVE)
[2024-08-19 06:13] LABS: HEPATITIS B SURFACE ANTIGEN NEGATIVE (NEGATIVE)
[2024-08-19 06:26] LABS: HIV 1&2 SCREEN NEGATIVE (NEGATIVE)
[2024-08-19 06:33] LABS: HEPATITIS C VIRUS ABY INDEX 0.04 INDEX (<0.8)
[2024-08-19] MEDS: ULIPRISTAL ACETATE 30MG TAB (ELLA) PO ONE (08:45)
[2024-08-19] MEDS: DOXYCYCLINE HYCLATE 100MG TABLET PO ONE (08:46)
[2024-08-19] MEDS: metroNIDAZOLE (FLAGYL) 500MG TABLET PO ONE (08:46)
[2024-08-19] MEDS: AZITHROMYCIN 250MG TABLET PO ONE (08:46)
[2024-08-19] MEDS: cefTRIAXone 500MG VIAL IM ONE (08:47)
[2024-08-19] MEDS: RALTEGRAVIR 400 MG TAB (ISENTRESS) PO ONE (08:47)
[2024-08-19] MEDS: EMTRICITABINE/TENOFOVIR 200MG/300MG TABLET PO ONE (08:47)
[2024-08-19] MEDS: LIDOCAINE 1% SDV 5ML VIAL DILUENT ONE (08:48)
[2024-08-19 09:27] VITALS: TEMP 97.8; O2SAT 98
[2024-08-19] MEDS: ONDANSETRON 4MG ORAL DISINTEGRATING TAB PO ONE (09:27)
[2024-08-19 09:36] VITALS: BP 116/71
[2024-08-19] MEDS ORDERED: DOXY100C3 PO (09:42)
[2024-08-20] MEDS ORDERED: EMTRICITABINE/TENOFOVIR 200MG/300MG TABLET PO SCH
== END 2024-08-19 10:01 | disposition home or self-care (01) ==
LOC: M ED 02:53
DX: T76.21XA Adult sexual abuse, suspected, initial encounter (principal); F41.9 Anxiety disorder, unspecified; F32.A Depression, unspecified; Z91.018 Allergy to other foods; Z79.1 Long term (current) use of non-steroidal anti-inflammatories (NSAID); Z79.2 Long term (current) use of antibiotics; Z79.899 Other long term (current) drug therapy
CPT/HCPCS: 80053; 84703; 85025; 86706; 86780; 86803; 87340; 87389; 96372; 99283; J0696

== ENCOUNTER → 2024-12-10 | Outpatient (CLI) | payer OTHER ==
[~2024-12-10] MED LIST changes: +BUPR-670; -BUPR1TAB52; +DOXY-442 PO; +DOXY100C3 PO; +EMTR1TAB16 PO; +RALT40TA PO; -RALTEGRAVIR 400 MG TAB (ISENTRESS) PO SCH
== END ==
LOC: M SLEEP HO 11:31
PROVIDERS: ATTEND Family Medicine
DX: G93.2 Benign intracranial hypertension (principal)

== ENCOUNTER 2025-01-02 14:05 | Observation (INO) | payer OTHER ==
[~2025-01-02] VITALS: Ht 154.9 cm; Wt 103.0 kg
[2025-01-02] MEDS ORDERED: DIAZ5TAB PO (14:22)
[2025-01-02] MEDS ORDERED: CLOP75TA2 PO (14:22)
[2025-01-02] MEDS ORDERED: DIAZ2TAB PO (14:22)
[2025-01-02] MEDS ORDERED: ECOT81TA5 PO (14:22)
[2025-01-02] MEDS ORDERED: LIFI1DRO4 OU (14:22)
[2025-01-02] MEDS ORDERED: SERT50TA29 PO (14:22)
[2025-01-02 14:58] LABS: BASO # 0.1 10^3/uL (0.0-0.2); BASO % 0.6 % (0.0-1.0); EOS # 0.1 10^3/uL (0.0-0.5); EOS % 0.4 % (0.0-3.0); LYMPH # 1.3 10^3/uL (1.5-5.0); LYMPH % 9.0 % (24.0-44.0); MONO # 1.4 10^3/uL (0.0-0.8); MONO % 9.7 % (2.0-8.0); NEUTROPHILS # 11.1 10^3/uL (1.5-8.5); NEUTROPHILS % 79.8 % (36.0-66.0); PLATELET COUNT, AUTOMATED 317 10^3/uL (150-450)
[2025-01-02 14:59] LABS: KETONE, URINE AUTO RFX 1+ mg/dL (NEGATIVE); MUCUS, URINE RFX SMALL (NEGATIVE); RBC, URINE AUTO RFX 8 /HPF (0-3); SQUAM EPITHELIAL CELL UR AURFX 11 /HPF (0-6); WBC, URINE AUTO RFX 183 /HPF (0-3)
[2025-01-02 15:00] LABS: LEUKOCYTE ESTERASE UR AUTO RFX 2+ (NEGATIVE); NITRITE, URINE AUTO RFX POSITIVE (NEGATIVE)
[2025-01-02 15:20] LABS: CALCIUM LEVEL 8.5 MG/DL (8.5-10.1); CARBON DIOXIDE LEVEL 24.0 MMOL/L (20-31); CHLORIDE LEVEL 99.0 MMOL/L (98-107); CREATININE FOR GFR 0.96 MG/DL (0.55-1.30); GLOMERULAR FILTRATION RATE 82.1 (>60); POTASSIUM SERUM 3.9 MMOL/L (3.5-5.1); SODIUM LEVEL 135.0 MMOL/L (136-145)
[2025-01-02] MEDS: ACETAMINOPHEN *IV* 1,000 MG in IV 1 EA IV ONE (19:08)
[2025-01-02] MEDS: NS (Normal Saline) 0.9% 1,000 ML IV ONE ×2 (20:15→22:27)
[2025-01-02] MEDS ORDERED: VARE1TAB2 PO (21:01)
[2025-01-02] MEDS ORDERED: ACET-897 PO (21:01)
[2025-01-02] MEDS ORDERED: HOME MED LIST COMPLETE! XX SCH (21:05)
[2025-01-02] MEDS: dexAMETHasone 4 MG/ML 1 ML VIAL IV ONE (23:00)
[2025-01-02] MEDS: KETOROLAC 30 MG/ML 1 ML VIAL IV ONE (23:01)
[2025-01-02] MEDS: MAG SULF 1GM/100ML (MAG RUN) 1 GM in IV 1 EA IV ONE (23:03)
[2025-01-02] MEDS ORDERED: ISOVUE-370 76% 100 ML VIAL As Ordered ONE (23:04)
[2025-01-03 00:16] VITALS: BP 106/58
[2025-01-03] MEDS: acetaZOLAMIDE 500 MG INJECTION IV STA (00:16)
[2025-01-03] MEDS: cefTRIAXone SOD 1 GM in DEXTROSE 5% (D5W) ADV/MINI-BAG 50 ML IV ONE ×2 (00:45→00:50)
[2025-01-03] MEDS ORDERED: ACETAMINOPHEN 500 MG TAB PO PRN (02:05)
[2025-01-03] MEDS: LR 1,000 ML IV SCH (02:25)
[2025-01-03] MEDS ORDERED: NICOTINE POLACRILEX 2 MG GUM PO PRN (02:35)
[2025-01-03] MEDS ORDERED: NICOTINE 14 MG/24 HR TRANSDERMAL TD PRN (02:35)
[2025-01-03 03:13] LABS: ALT/SGPT 16.0 U/L (7.0-40); AST/SGOT 19.0 U/L (<34)
[2025-01-03 06:14] VITALS: BP 109/57; TEMP 97.5; O2SAT 98
[2025-01-03 07:27] LABS: PLATELET COUNT, AUTOMATED 297 10^3/uL (150-450)
[2025-01-03 07:52] VITALS: BP 109/57; TEMP 97.7; O2SAT 97
[2025-01-03 08:00] LABS: CALCIUM LEVEL 8.0 MG/DL (8.5-10.1); CARBON DIOXIDE LEVEL 19 MMOL/L (20-31); CHLORIDE LEVEL 106 MMOL/L (98-107); CREATININE FOR GFR 0.80 MG/DL (0.55-1.30); GLOMERULAR FILTRATION RATE > 90.0 (>60); POTASSIUM SERUM 4.2 MMOL/L (3.5-5.1); SODIUM LEVEL 138 MMOL/L (136-145)
[2025-01-03] MEDS ORDERED: XIIDRA 5% OU SCH (09:00)
[2025-01-03] MEDS: ASPIRIN 81 MG ENTERIC TABLET PO SCH (09:06)
[2025-01-03] MEDS: SERTRALINE HCL 50 MG TAB PO SCH (09:06)
[2025-01-03] MEDS: CLOPIDOGREL 75 MG TAB PO SCH (09:06)
[2025-01-03] MEDS: diazePAM 2 MG TAB PO SCH (09:06)
[2025-01-03] MEDS: cefTRIAXone SOD 2 GM in DEXTROSE 5% (D5W) ADV/MINI-BAG 50 ML IV SCH (09:07)
[2025-01-03] MEDS: HEPARIN SOD 5000 UNITS/ML 1 ML VIAL/SYRINGE SC SCH (09:07)
[2025-01-03 12:00] VITALS: BP 131/58; TEMP 98.8; O2SAT 99
[2025-01-03] MEDS: ACETAMINOPHEN 500 MG TAB PO PRN (13:51)
[2025-01-03] MEDS: ZONISAMIDE 50MG CAP PO SCH (15:29)
[2025-01-03] MEDS ORDERED: PROHANCE 279.3MG/ML 15ML VIAL As Ordered ONE (16:57)
[2025-01-03] MEDS ORDERED: PROHANCE 279.3MG/ML 5ML VIAL As Ordered ONE (16:57)
[2025-01-03 20:12] VITALS: BP 94/53; TEMP 97.5; O2SAT 97
[2025-01-04 00:26] VITALS: BP 96/54; TEMP 96.6; O2SAT 98
[2025-01-04 03:49] VITALS: BP 98/56; TEMP 97; O2SAT 96
[2025-01-04 06:31] LABS: PLATELET COUNT, AUTOMATED 327 10^3/uL (150-450)
[2025-01-04 07:15] LABS: CALCIUM LEVEL 8.6 MG/DL (8.5-10.1); CARBON DIOXIDE LEVEL 18 MMOL/L (20-31); CHLORIDE LEVEL 111 MMOL/L (98-107); CREATININE FOR GFR 0.66 MG/DL (0.55-1.30); GLOMERULAR FILTRATION RATE > 90.0 (>60); POTASSIUM SERUM 4.4 MMOL/L (3.5-5.1); SODIUM LEVEL 141 MMOL/L (136-145)
[2025-01-04 08:00] VITALS: BP 99/57; TEMP 97.3; O2SAT 97
[2025-01-04 12:00] VITALS: BP 122/76; TEMP 97.9; O2SAT 98
[2025-01-04] MEDS ORDERED: ZONI50CA PO (12:01)
[2025-01-04] MEDS ORDERED: CEFP100T PO (12:03)
[2025-01-04] MEDS ORDERED: CEFPODOXIME PROXETIL 200 MG TABLET PO SCH (21:00)
== END 2025-01-04 12:27 | disposition home or self-care (01) ==
LOC: M ED 14:05 → M ED INP 14:06 → M MSPAV 01-03 06:08
PROVIDERS: ADMIT Student in an Organized Health Care Education/Training Program; ATTEND Student in an Organized Health Care Education/Training Program
DX: N10 Acute pyelonephritis (principal); A41.51 Sepsis due to Escherichia coli [E. coli]; R51.9 Headache, unspecified; G93.2 Benign intracranial hypertension; Z96.89 Presence of other specified functional implants; D72.829 Elevated white blood cell count, unspecified; R00.0 Tachycardia, unspecified; K90.0 Celiac disease; F39 Unspecified mood [affective] disorder; R53.83 Other fatigue; H53.143 Visual discomfort, bilateral; R11.0 Nausea; H93.19 Tinnitus, unspecified ear; R19.7 Diarrhea, unspecified; H47.11 Papilledema associated with increased intracranial pressure; Z87.891 Personal history of nicotine dependence; Z79.899 Other long term (current) drug therapy; Z79.82 Long term (current) use of aspirin; Z79.02 Long term (current) use of antithrombotics/antiplatelets; Z91.018 Allergy to other foods; Z98.891 History of uterine scar from previous surgery
CPT/HCPCS: 36415; 70450; 70490; 70496; 70545; 71045; 72128; 72131; 74177; 80048; 80076; 81001; 83605; 84145; 85025; 85027; 87040; 87088; 87186; 87486; 87507; 87581; 87633; 87798; 96361; 96365; 96366; 96367; 96372; 96375; 96376; 99285; A9576; J0131; J0696; J1100; J1120; J1885; J2919; J3360; J3475; Q9967

== ENCOUNTER 2025-01-06 09:52 | Emergency (ER) | payer OTHER ==
[~2025-01-06] VITALS: Ht 154.9 cm; Wt 102.1 kg
[~2025-01-06 09:52] MED LIST changes: +ACET-897 PO; +CEFP100T PO; +CLOP75TA2 PO; +DIAZ2TAB PO; +DIAZ5TAB PO; +ECOT81TA5 PO; +LIFI1DRO4 OU; +SERT50TA29 PO; +VARE1TAB2 PO; +ZONI50CA PO
[2025-01-06 11:48] LABS: KETONE, URINE AUTO RFX NEGATIVE (NEGATIVE); MUCUS, URINE RFX SMALL (NEGATIVE); NITRITE, URINE AUTO RFX NEGATIVE (NEGATIVE); RBC, URINE AUTO RFX 1 /HPF (0-3); SQUAM EPITHELIAL CELL UR AURFX 64 /HPF (0-6); WBC, URINE AUTO RFX 6 /HPF (0-3)
[2025-01-06 12:04] LABS: LEUKOCYTE ESTERASE UR AUTO RFX TRACE (NEGATIVE)
[2025-01-06] MEDS: ACETAMINOPHEN *IV* 1,000 MG in IV 1 EA IV ONE (12:36)
[2025-01-06 12:47] LABS: BASO # 0.1 10^3/uL (0.0-0.2); BASO % 0.7 % (0.0-1.0); EOS # 0.1 10^3/uL (0.0-0.5); EOS % 1.7 % (0.0-3.0); LYMPH # 2.3 10^3/uL (1.5-5.0); LYMPH % 27.8 % (24.0-44.0); MONO # 0.9 10^3/uL (0.0-0.8); MONO % 10.5 % (2.0-8.0); NEUTROPHILS # 4.9 10^3/uL (1.5-8.5); NEUTROPHILS % 59.1 % (36.0-66.0); PLATELET COUNT, AUTOMATED 332 10^3/uL (150-450)
[2025-01-06 13:14] LABS: ALT/SGPT 20 U/L (7.0-40); AST/SGOT 10 U/L (<34); CALCIUM LEVEL 8.3 MG/DL (8.5-10.1); CARBON DIOXIDE LEVEL 27 MMOL/L (20-31); CHLORIDE LEVEL 107 MMOL/L (98-107); CREATININE FOR GFR 0.80 MG/DL (0.55-1.30); GLOMERULAR FILTRATION RATE > 90.0 (>60); POTASSIUM SERUM 3.9 MMOL/L (3.5-5.1); SODIUM LEVEL 143 MMOL/L (136-145)
[2025-01-06] MEDS ORDERED: HOME MED LIST COMPLETE! XX SCH (14:30)
[2025-01-06 15:07] VITALS: TEMP 96.9; O2SAT 98
[2025-01-06] MEDS ORDERED: ISOVUE-370 76% 100 ML VIAL As Ordered ONE (15:15)
[2025-01-06] MEDS: NS (Normal Saline) 0.9% 1,000 ML IV ONE (15:28)
[2025-01-06 15:31] VITALS: BP 98/56
== END 2025-01-06 17:03 | disposition home or self-care (01) ==
LOC: M ED 09:52
DX: R10.11 Right upper quadrant pain (principal); N83.291 Other ovarian cyst, right side; F12.10 Cannabis abuse, uncomplicated; Z91.018 Allergy to other foods; Z79.1 Long term (current) use of non-steroidal anti-inflammatories (NSAID); Z79.899 Other long term (current) drug therapy
CPT/HCPCS: 36415; 74177; 76705; 80048; 80076; 81001; 83605; 83690; 85025; 87086; 96361; 96365; 99284; J0131; Q9967

== ENCOUNTER → 2025-03-26 | Outpatient (REF) | payer OTHER ==
[~2025-03-26] MED LIST changes: -IBUP-1022 PO; +IBUP600T42 PO
== END ==
LOC: M LAB REF 13:14
PROVIDERS: ATTEND Family Medicine
DX: Z12.4 Encounter for screening for malignant neoplasm of cervix (principal)

== ENCOUNTER 2025-05-05 03:30 | Emergency (ER) | payer OTHER ==
[~2025-05-05] VITALS: Ht 154.9 cm; Wt 100.0 kg
[2025-05-05 06:29] VITALS: BP 100/57; TEMP 98.1; O2SAT 98
== END 2025-05-05 06:33 | disposition home or self-care (01) ==
LOC: M ED 03:30
DX: R51.9 Headache, unspecified (principal); F17.210 Nicotine dependence, cigarettes, uncomplicated; Z91.018 Allergy to other foods; Z79.1 Long term (current) use of non-steroidal anti-inflammatories (NSAID); Z79.899 Other long term (current) drug therapy